=== PATIENT | female | born 1945 | race Caucasian/White ===

== ENCOUNTER 2018-11-25 12:53 | Inpatient (IN) | payer OTHER ==
--- NOTE | 2018-11-25 12:43 | EDPHY ---
H & P Time Seen by Provider: 11/25/18 12:57 Constitutional: Initial Vital Signs Temperature (C) 35.6 C L 11/25/18 13:02 Heart Rate 76 11/25/18 13:02 Respiratory Rate 22 H 11/25/18 13:02 Blood Pressure 92/56 L 11/25/18 13:02 O2 Sat (%) 95 11/25/18 13:02 O2 Delivery Mode Nasal Cannula O2 (L/minute) 3 Allergies/Adverse Reactions: codeine Allergy (Verified 11/25/18 13:13) Home Medications: Medication Instructions Recorded Lisinopril 11/25/18 Medical Decision Making - Diagnostics Imaging Results: Imaging Impressions Chest X-Ray 11/25/18 12:58 Impression: 1. Suspect congestive heart failure. 2. See above report for additional findings. Results discussed with Gray Quezada MD on 11/25/2018 at 13:42. Imaging: Discussed imaging studies w/ yardage caller Radiologist, I viewed and interpreted images myself ED Course/Re-evaluation: CHIEF COMPLAINT: Cardiac alert HISTORY OF PRESENT ILLNESS: The patient is a 74 y/o female arriving via EMS as a cardiac alert for chest pain onset 45 minutes ago at 12:15. The patient described her pain as left- sided and non-radiating in nature. The pain was a 12/10 and exacerbated with respirations and movements. While en route the patient had ST elevation in leads V4, V5, and V6. The patient received 324mg PO Aspirin, 3 rounds of Nitro, 4mg IV Zofran, 100mcg IV Fentanyl, and 10mg IV Morphine. After medication her pain decreased to an 8/10 and her BP dropped to 107/73 with a heart rate of 50. After arriving to the emergency department she was exhibiting Olson's sign. No fever, headache, body aches, lightheadedness, heart palpitations, shortness of breath, cough, abdominal pain, urinary or bowel complaints, numbness, paresthesias. REVIEW OF SYSTEMS: A comprehensive 10 system review of systems is otherwise negative aside from elements mentioned in the history of present illness and medical decision making. PHYSICAL EXAM: HR, BP, O2 Sat, RR. Temp noted General Appearance: Alert, diaphoretic, looks to be in distress, well hydrated , appropriate, and non-toxic appearing. Head: Atraumatic without scalp tenderness or obvious injury Eyes: Pupils equal, round, reactive to light and accommodation, EOMI, no trauma , no injection. Ears: Clear bilaterally, no perforation, normal landmarks Nose: Atraumatic, no rhinorrhea, clear. Throat: There is no erythema or exudates, no lesions, normal tonsils, mucus membranes moist. Neck: Supple, 2+ carotid upstroke, nontender, no lymphadenopathy. Respiratory: No retractions, no distress, no wheezes, and no accessory muscle use. Lungs are clear to auscultation bilaterally. Cardiovascular: Olson's sign, is diaphoretic, and has a 2/6 systolic ejection murmur. No rubs or gallops. Bilateral carotid, radial, dorsalis pedis, and posterior tibial pulses intact. Good capillary refill all extremities. Gastrointestinal: Abdomen is soft, nontender, non-distended, no masses, no rebound, no guarding, no peritoneal signs. Musculoskeletal: Normal active ROM of all extremities, atraumatic. Neurological: Alert, appropriate, and interactive. The patient has normal DTRs and non-focal cranial nerves, motor, sensory, and cerebellar exam. Skin: No rashes, good turgor, no nodules on palpation. Past medical history: Hypertension, chronic back pain Past surgical history: Tens unit for chronic back pain Family history: Denies Social history: Friend at bedside, does not abuse drugs or alcohol, retired DIAGNOSTICS/PROCEDURES/CRITICAL CARE TIME: EKG: The 12 lead EKG was interpreted by myself as an acute right-sided inferior ND with reciprocal depression. See hard copy and/or "tracemaster" electronic copy for interpretation. Study: Chest X-ray Indication: Chest pain Results: After viewing the images myself on the PACS system. My interpretation of the images is: hiatal hernia and spinal stimulator. The radiologist interpretation is pending at the time of this dictation. I have discussed the above x-rays with the radiologist. Critical care time spent by me, Dr. Aguirre, exclusively with this patient was 30 minutes, exclusive of PA time and exclusive of procedures. The organ system at risk was cardiovascular and I gave Ativan, had labs and imaging performed, and emergently transferred the patient to a paraffiner to prevent worsening of the patients condition. DIFFERENTIAL DIAGNOSIS: The differential diagnosis for the patient's chest pain included but was not limited to STEMI, myocardial ischemia, pulmonary embolus, chest wall pain, pleural inflammation, and pulmonary infectious causes. MEDICAL DECISION MAKING: The patient is a 74 y/o female arriving via EMS as a cardiac alert for chest pain onset 45 minutes ago at 12:15. The patient described her pain as left- sided and non-radiating in nature. While en route the patient had ST elevation in leads V4, V5, and V6. The patient received 324mg PO Aspirin, 3 rounds of Nitro, 4mg IV Zofran, 100mcg IV Fentanyl, and 10mg IV Morphine. After medication her pain decreased to an 8/10 and her BP dropped to 107/73 with a heart rate of 50. On exam the patient is exhibiting Olson's sign, is diaphoretic, and has a 2/6 systolic ejection murmur. Chest x-ray, labs, and EKG ordered. 1242: Dr. Mooney, paraffiner, is in the room prior to patient arrival. 1254: I met EMS upon arrival. 1258: 1mg IV Ativan administered. 1259: I interpreted patient's EKG as an acute right-sided inferior ND. Patient will need to be sent to the slab conditioner supervisor. 1300: I discussed going to the slab conditioner supervisor with the patient after reviewing her EKG. She is comfortable with this plan. 1302: HR: 56, BP: 92/56, O2Sats: 98% 1303: I reviewed patient's chest x-ray with Dr. Mooney at bedside. I do not suspect she has a dissecting aorta. There is a spinal stimulator and hiatal hernia visualized. 1305: Dr. Plasencia, paraffiner, is in the room. 1340: I spoke with Dr. Ventura, radiologist, who confirms that the patient has a hiatal hernia and spinal stimulator. There is no dissection. 1345: Patient is in slab conditioner supervisor; Dr. Mooney reports that the patient has an occluded circumflex artery. 1600: I consulted with Dr. Plasencia who reports that the patient had a spontaneous coronary artery dissection. - Data Points Laboratory Results: 11/25/18 11/25/18 13:12 13:09 POC Hgb 13.9 gm/dL gm/dL (12.6-16.3) POC Hct 41 % % (38-47) POC Sodium 140 mEq/L mEq/L (135-145) POC Potassium 4.5 mEq/L mEq/L (3.3-5.0) POC Chloride 109 mEq/L mEq/L (97-110) POC Total CO2 18 mEq/L L mEq/L (22-31) POC BUN 34 mg/dL H mg/dL (7-23) POC Creatinine 1.2 mg/dL H mg/dL (0.6-1.0) POC Glucose 116 mg/dL H mg/dL (70-100) POC Troponin I 0.76 ng/mL H ng/mL (0.00-0.08) Medications Given: Sodium Chloride (Ns) 1,000 mls @ 75 mls/hr IV CONT SANDY Stop: 05/24/19 15:29 Last Admin: 11/25/18 15:29 Dose: 1,000 mls Lorazepam (Ativan Injection) 1 - 2 mg IVP Q4HRS PRN PRN Reason: Anxiety, Unable to Take PO Stop: 05/24/19 15:17 Last Admin: 11/25/18 16:02 Dose: 2 mg Ondansetron HCl (Zofran) 4 mg IVP Q4HRS PRN PRN Reason: Nausea/Vomiting, Can't Take PO Stop: 05/24/19 15:14 Last Admin: 11/25/18 15:36 Dose: 4 mg Discontinued Medications Lorazepam (Ativan Injection) 1 mg IVP EDNOW ONE Stop: 11/25/18 13:01 Last Admin: 11/25/18 13:05 Dose: 1 mg Morphine Sulfate (Morphine) 4 mg IVP ONCE ONE Stop: 11/25/18 15:31 Last Admin: 11/25/18 15:05 Dose: 4 mg Morphine Sulfate (Morphine) 2 - 4 mg IVP Q2H PRN PRN Reason: Pain, Severe Unable to Take PO Stop: 12/05/18 15:13 Last Admin: 11/25/18 15:51 Dose: 4 mg Point of Care Test Results: Chemistry 11/25/18 11/25/18 13:12 13:09 POC Sodium 140 mEq/L mEq/L (135-145) POC Potassium 4.5 mEq/L mEq/L (3.3-5.0) POC Chloride 109 mEq/L mEq/L (97-110) POC Total CO2 18 mEq/L L mEq/L (22-31) POC BUN 34 mg/dL H mg/dL (7-23) POC Creatinine 1.2 mg/dL H mg/dL (0.6-1.0) POC Glucose 116 mg/dL H mg/dL (70-100) POC Troponin I 0.76 ng/mL H ng/mL (0.00-0.08) ISTAT H&H 11/25/18 13:12 POC Hgb 13.9 gm/dL gm/dL (12.6-16.3) POC Hct 41 % % (38-47) Departure - Departure Disposition: To OP Cath/Surgery Clinical Impression: STEMI (ST elevation myocardial infarction) Qualifiers: Involved coronary artery: left circumflex coronary artery Qualified Code(s): I21.21 - ST elevation (STEMI) myocardial infarction involving left circumflex coronary artery Condition: Critical Report Scribed for: Gray Quezada Report Scribed by: Sahra Chahal Date of Report: 11/25/18 Time of Report: 12:43
[2018-11-25] MEDS ORDERED: LORazepam 2 MG/ML INJ IVP ONE (13:00)
[2018-11-25] MEDS ORDERED: LORazepam 2 MG/ML INJ ONE (13:00)
[2018-11-25] MEDS ORDERED: LIDOCAINE 1% 300 MG/30 ML SDV ONE (13:03)
[2018-11-25] MEDS ORDERED: MIDAZOLAM 2 MG/2 ML VIAL ONE (13:04)
[2018-11-25] MEDS ORDERED: HEPARIN 10,000 UNIT/10 ML MDV (1,000 UNIT/ML) ONE (13:04)
[2018-11-25] MEDS ORDERED: fentaNYL 100 MCG/2 ML INJ ONE (13:04)
[2018-11-25] MEDS ORDERED: VERAPAMIL 5 MG/2 ML VIAL ONE (13:04)
[2018-11-25] MEDS ORDERED: IOPAMIDOL (ISOVUE-370) 150 ML BTL IV ONE ×2 (13:05→13:55)
--- NOTE | 2018-11-25 13:24 | PDCONSULT ---
Boat Detailer Note: CC: Chest pains HPI: Patient is a 72 y/o female with history of HTN (on therapy), as well as bilateral shoulder surgeries, and TENS unit for assistance with pain control with shoulder pains that had been noted post multiple shoulder surgeries. In speaking with the patient, there is also a history of "murmur" for which she has been seen/followed by cardiology at [place] (uncertain when last testing was performed with respect to this stated history). No history of HLP, CAD, or DM. Patient did not have a list of her home medications on her (it is on phone, and phone was not on her). ECG from EMS with large ST elevation to the inferior /inferolateral leads. No IV access was obtained given difficult stick in field. Patient noted symptoms this morning while working at [employer]. EMS was prompt at getting to patient. About 45 minutes of travel time from [place] to [place]. Arrival at just prior to 1300 to [facility] ER. ECG in the ER with ongoing, large ST elevations to inferior/inferolateral leads. Labs were drawn with creatinine of 1.2 and troponin of 0.76. Chest pains were 12/10 at start, and with three SL NTG, minimal improvement in pain was noted. CXR without rossana mediastinal widening noted. There appears to be a large hiatal hernia. Moderate right congestion noted. Risks and benefits of invasive left heart catheterization were discussed with the patient by Dr. Silvia Plasencia. ROS: chest pains with radiation into the left shoulder and arm. Diaphoresis. Nausea with emesis. Malaise and weakness. No fevers, chills, constipation, or diarrhea were noted. Remainder of the 12 point review of systems was unremarkable. Bystanders noted diaphoresis and pallor. PMHx: (1) HTN (2) No HLP (3) No CAD (4) No DM (5) Multiple shoulder surgeries and chronic pain with TENS unit placement Allergies to Codeine Medications are being clarified, but it sounded as if the patient was on ACEi for HTN history PE Vitals as below GEN: awake and alert, uncomfortable with ongoing substernal chest pains SKIN: no rash. Diaphoretic. Pale. No edema HEENT: NCAT with PERRLA, EOMI NECK: no JVD noted LUNGS: CTA with diminished breath sounds bilaterally. No crackles were noted COR: Distant, but regular. Normal S1 and S2 (+) S3 ABD: soft, mod obesity EXT: No c/c/e, with 2+ DP/PT/RAD pulses Neuro: patient is uncomfortable and unable to find comfortable position Labs: Laboratory Tests 11/25/18 11/25/18 13:09 13:12 POC Hgb 13.9 POC Hct 41 POC Sodium 140 POC Potassium 4.5 POC Chloride 109 POC Total CO2 18 L POC BUN 34 H POC Creatinine 1.2 H POC Glucose 116 H POC Troponin I 0.76 H ECG with dynamic ST elevation to the inferior and inferolateral leads CXR with congestion and probable large hiatal hernia Assessment: Patient is a 72 y/o female with history of HTN, and dynamic ST changes on ECG with associated chest pains. Mild troponin elevation noted (0.7). Plan to take patient to the cardiac woods laborer urgently. Plans: further recommendations after invasive testing has been completed.
[2018-11-25] MEDS ORDERED: BIVALIRUDIN 250 MG/5 ML VIAL IV ONE (13:36)
[2018-11-25] MEDS ORDERED: NITROGLYCERIN 1,500 MCG/15 ML VIAL MISC ONE (14:17)
--- NOTE | 2018-11-25 14:40 | CPEKG ---
Test Reason : OPEN Blood Pressure : / mmHG Vent. Rate : 056 BPM Atrial Rate : 056 BPM P-R Int : 201 ms QRS Dur : 098 ms QT Int : 469 ms P-R-T Axes : 090 -13 090 degrees QTc Int : 453 ms Sinus rhythm Inferior infarct, acute (LCx) Anterior infarct, possibly acute Lateral leads are also involved Confirmed by Gray Quezada ([id number]) on 11/25/2018 2:39:49 PM Referred By: Gray Quezada Confirmed By:Gray Quezada
[2018-11-25] MEDS ORDERED: NS 1,000 ML IV SCH (15:15)
[2018-11-25] MEDS ORDERED: NITROGLYCERIN 0.4 MG BTL SL PRN (15:15)
[2018-11-25] MEDS ORDERED: ATROPINE SULFATE 1 MG/10 ML SYR IVP PRN (15:15)
[2018-11-25] MEDS ORDERED: TEMAZEPAM 15 MG CAP PO PRN (15:15)
[2018-11-25] MEDS ORDERED: ACETAMINOPHEN 325 MG TAB PO PRN (15:15)
[2018-11-25] MEDS ORDERED: LORazepam 2 MG/ML INJ IVP PRN (15:15)
[2018-11-25] MEDS: NS 1,000 ML IV SCH ×2 (15:29→17:54)
--- NOTE | 2018-11-25 15:35 | PDDXCAT ---
Diagnostic Cath Note - . Date: 11/25/18 Operations Research Scientist: Luis Angel Indication: other (Inferior STEMI) - Procedure Access: right groin Procedure: left heart catheterization, coronary angiography, left ventriculogram , other (Attempted PCI of the distal RCA) - Materials Left Heart Cath size: 6F Left Heart Cath materials: standard multipack (JL4, JR4, pigtail) - Findings-Left Heart Catheterization LM: Normal. LAD: The LAD is a moderate to large vessel. The LAD and its diagonal branches are normal in appearance. LCX: The circumflex is a large codominant vessel. It gives rise to 3 obtuse marginal branches before terminating as a low posterolateral branch on the inferior wall. The terminal portion of the circumflex is totally occluded. RCA: The RCA is a moderate size codominant vessel. It is normal in appearance. LVEF: 55-60%. Wall motion: There is a focal area of inferior akinesis. Complications: None. Estimated blood loss: <50ml Closure method: Angioseal Assessment: 1.Acute inferior ST segment elevation myocardial infarction. 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 3. Unsuccessful attempt at PCI of the distal circumflex. Intervention: Based on the patient's clinical presentation and diagnostic angiography, the decision was made to perform percutaneous coronary intervention of the distal circumflex occlusion. The patient received intravenous Angiomax. A 6 Slovak CLS 3.5 guide catheter was advanced to the left main. An Intuition guidewire was advanced to the point of occlusion in the distal circumflex. It was difficult to advance it beyond this point. A 2.5 x 12 mm Emerge balloon was advanced over the guidewire to provide support. Ultimately, the guidewire was advanced 2-3 cm beyond the site of total occlusion. The balloon was advanced beyond the site of occlusion and then withdrawn. An angiogram was performed to see whether or not this re-established any flow. There was no significant flow beyond the side of the original occlusion. I had concern that the guidewire and balloon were within a dissection plane. The balloon catheter and guidewire were removed. A long Rug Hooker 50 guidewire was advanced to the distal circumflex and negotiated into approximately the same position as the previous guidewire. A 2.0 x 12 mm Sprinter [id number] balloon was advanced beyond the total occlusion. The guidewire was withdrawn and contrast was injected through the central balloon catheter lumen. The tip of the balloon appeared to be within a small terminal vessel of the circumflex. The guidewire was readvanced through the balloon catheter. The balloon was positioned at the site of total occlusion and a single inflation was performed. Subsequent angiography demonstrated no gnosticism of anterograde flow. At this point, I still had concerns that the guidewire and balloon catheter were subintimal for some portion of their course and that further attempts at PCI would serve to increase the risk for a complication such as coronary perforation. Additionally , it appeared that the salvageable portion of the distal circumflex a relatively small branch and that re-establishing anterograde flow would not necessarily confer a substantial improvement in her long-term prognosis. The procedure was terminated at this point. Patient Problems: Problems Problem Status Onset STEMI (ST elevation myocardial infarction) Acute
[2018-11-25] MEDS: ONDANSETRON 4 MG/2 ML VIAL IVP PRN (15:36)
[2018-11-25] MEDS: LORazepam 2 MG/ML INJ IVP PRN (16:02)
[2018-11-25] MEDS ORDERED: NS 500 ML IV ONE ×2 (17:00→17:30)
[2018-11-25] MEDS ORDERED: ALBUMIN 5% 500 ML IV ONE ×2 (17:53→18:30)
[2018-11-25] MEDS ORDERED: ALBUMIN 5% 500 ML BOTTLE IV ONE (17:58)
[2018-11-25 22:43] LABS: CREATINE KINASE 434 IU/L (0-156)
[2018-11-26] MEDS: FAMOTIDINE 20 MG TAB PO SCH ×3 (00:19→22:32)
[2018-11-26] MEDS: METOPROLOL TARTRATE 25 MG TAB PO SCH ×3 (00:20→22:32)
[2018-11-26] MEDS: HYDROmorphONE/DILAUDID 1 MG/ML INJ IVP PRN ×5 (00:34→14:31)
--- NOTE | 2018-11-26 05:02 | GCON ---
[f rep st] CONSULTATION CRITICAL CARE CONSULTATION REASON FOR CONSULTATION: Intensive care unit evaluation and management following myocardial infarction. HISTORY OF PRESENT ILLNESS: The patient is a 73-year-old from [place], who noted chest pain while at work this morning. EMS was called. She was brought to the emergency department with ST-elevation in the inferior lateral leads. She was taken emergently to the clinical laboratory science professor. Distal circumflex lesion was noted. This was felt possibly to be a spontaneous dissection of a coronary artery. There was no evidence of coronary artery disease elsewhere. Balloon angioplasty was not successful. The patient was admitted to the intensive care unit following the procedure to complete her distal and small myocardial infarction. A small area of akinesis is noted on catheterization; however, global left ventricular function is intact. She has returned to the intensive care unit with ongoing chest pain with radiation to her left arm. PAST MEDICAL HISTORY: Remarkable for systemic hypertension, chronic pain secondary to multiple shoulder surgeries. She has a TENS unit in place. MEDICATIONS: Outpatient medications include lisinopril. A full list perhaps is not yet available. DRUG ALLERGIES: Codeine. She states that she does not respond well to morphine , prefers Dilaudid. SOCIAL HISTORY: Lives and works in [place]. Supportive family here with her. She smoked cigarettes in the past, apparently no longer smoking. Significant alcohol is apparently negative. FAMILY HISTORY: Unobtainable. REVIEW OF SYSTEMS: A 10-point review of systems is negative, except as mentioned above and as reviewed in chart notes by others. PHYSICAL EXAMINATION: GENERAL: Reveals a woman who is sedated at the current time, secondary to pain medication. VITALS: With the sedation, blood pressure has dropped to approximately 75/45. She is on 2 L of oxygen with saturations in the mid 90s. Respiratory rate is 12. She is afebrile. Heart rate is 72 with sinus rhythm on the monitor. ST segments are elevated. HEENT: Unremarkable for lymphadenopathy or thyromegaly. There is no obvious jugular venous distention. Pupils appear equal. CHEST: Clear anteriorly. Breath sounds are diminished at the bases. HEART: Regular in rate and rhythm. There is a soft systolic murmur, no gallop. P2 appears normal. ABDOMEN: Soft, nontender. Bowel sounds are present, but diminished. EXTREMITIES: Without edema or obvious cords. NEUROLOGIC: Nonfocal. LABORATORY DATA: Hematocrit is 41. Basic metabolic panel on admission showed a sodium of 140, potassium 4.5, BUN 34, with a creatinine 1.2. Glucose is 116. Initial troponin 0.76. ASSESSMENT: 1. Acute myocardial infarction. No stenting possible. Sent to ICU to complete her infarct. 2. Chest pain, secondary to 1. Myocardial left-sided chest pain to the shoulder /axilla area is present, quite significant for the patient. This will be present in till myocardial inflammation resolves. PLAN/RECOMMENDATIONS: The patient will be kept in the intensive care unit. Hemodynamics and rhythm will be monitored closely. Aspirin and metoprolol will be given. Pain will be controlled with intravenous Dilaudid. Pepcid will be given. She can be started on enoxaparin tomorrow. Intravenous fluids will be given. Laboratory and chest x-ray will be followed. Further plans and recommendations will be made based on her progress over the next 12-24 hours. /[id number]/MODL and [id number]/MODL [facility]
[2018-11-26 05:40] LABS: PLATELET COUNT 250 10^3/uL (150-400)
[2018-11-26 05:54] LABS: INR 1.03 (0.83-1.16); PROTIME(PATIENT) 13.1 SEC (12.0-15.0)
[2018-11-26] MEDS: ASPIRIN 325 MG TAB PO SCH (10:24)
--- NOTE | 2018-11-26 10:58 | ECHO ---
[email or web address] [address] [address] Main: [phone] Echocardiography Examination Transthoracic Name: CLARIBEL NEGRON MR#: [id number] Study Date: 11/26/2018 Study Time: 09:09 AM Date of : 1945 Age: 73 year(s) Height: 162.6 cm (64 in.) Weight: 77.57 kg (171 lb.) BSA: 1.83 m2 Gender: Female Examination: Echo Contrast: Image Quality: Technically Difficult Rhythm: Sinus bradycardia Heart Rate: 46 bpm BP: 117 mmHg/57 mmHg Indication: STEMI Procedure Staff Referring Physician: Storage Wharfage Clerk: Erin Graves [facility] Reading Physician: Lucas Pierce MD Requesting Provider: Indication: STEMI Measurements Chambers AV/MV Label Value Normal Value Label Value Normal Value EF lower range (%) 60 % AR PHT 0.57 s EF upper range (%) 65 % AR PHT 571 ms IVSd, 2D 0.9 cm (0.6cm - 1.1cm) AR Vena contracta 0.5 cm LVDd, 2D 4.3 cm (3.9cm - 5.3cm) AR Vmax 3.92 m/s LVDs, 2D 2.8 cm (2.1cm - 4cm) AV PGmax 23 mmHg LVEF, 2D 64 % (54% - 74%) AV PGmean 14 mmHg LVEF, BP 63 % (55% - 70%) AV Vmax 2.42 m/s LVOT PGmean 3 mmHg JOSEPHINE D (continuity eq. 1 cm2 LVOT Vmean 0.75 m/s VTI) LVOTd 1.8 cm (1.8cm - 2cm) MV A Vmax 0.68 m/s LVPWd, 2D 1.1 cm MV DT 162 ms RVDd, 2D 3.1 cm (1.9cm - 3.8cm) MV E' lateral 0.06 m/s LA Volume, BP 83 ml (22ml - 52ml) MV E' mean 0.06 m/s LAESV index, BP 45.4 ml/m2 MV E' septal 0.06 m/s RA Area 13.7 cm2 MV E Vmax 0.95 m/s Additional Vessels MV E/A 1.4 Label Value Normal Value MV E/E' lateral 15.4 AoAsc 3 cm MV E/E' mean 15.83 AoRoot, 2D 2.8 cm (1.4cm - 2.6cm) MV E/E' septal 15.4 (0.45 - 1.25) TV/PV Patient: CLARIBEL NEGRON Study Date: 11/26/2018 Page 1 of 3 09:09 AM Label Value Normal Value RA Pressure 5 mmHg RVSP 35 mmHg TR Pmax 30 mmHg TR Vmax 2.73 m/s KS End bauer Jordon 0.41 cm/s PV PGmax 3 mmHg PV Vmax, Caliper 0.86 m/s (0.6m/s - 0.9m/s) Conclusions Left Ventricle: Left ventricle is normal in size. EF range is estimated at 60 % - 65 %. There are no regional wall motion abnormalities. Right Ventricle: Right ventricular systolic function is normal. Left Atrium: The left atrium is moderately dilated. Right Atrium: The right atrium is normal in size. Aortic Valve: Mild to moderate aortic regurgitation is present. There is mild aortic stenosis. Aortic Valve Measurements AV Vmax is 2.42 m/s. AV PGmean is 14 mmHg. Tricuspid Valve: Right Ventricular systolic pressure is measured at 35 mmHg. IVC: The inferior vena cava is normal in size and course. Pericardium: No pericardial effusion. Findings Left Ventricle: Left ventricle is normal in size. Normal global systolic left ventricular function. EF evaluated by EF (biplane Jordan's). The ejection fraction, measured by Simpsons method, is 63 %. EF range is estimated at 60 % - 65 %. The LV wall thickness is at the upper limits of normal. There are no regional wall motion abnormalities. Grade II Diastolic Dysfunction. Right Ventricle: Normal size right ventricle. Right ventricular systolic function is normal. Left Atrium: The left atrium is moderately dilated. Right Atrium: Patient: CLARIBEL NEGRON Study Date: 11/26/2018 Page 2 of 3 09:09 AM The right atrium is normal in size. Mitral Valve: Mitral valve appears structurally normal. Mild mitral regurgitation. No mitral valve stenosis. Aortic Valve: Mild to moderate aortic regurgitation is present. There is mild aortic stenosis. Aortic leaflets exhibit moderate calcification. The aortic valve is trileaflet. Aortic Valve Measurements AV Vmax is 2.42 m/s. AV PGmean is 14 mmHg. JOSEPHINE D (continuity eq. VTI) is 1.0 cm2. Tricuspid Valve: Tricuspid valve leaflets are normal in appearance and function. Mild tricuspid regurgitation. No tricuspid valve stenosis. Right Ventricular systolic pressure is measured at 35 mmHg. Pulmonary artery pressure is mildly increased. Pulmonic Valve: Pulmonic leaflets are normal in appearance and function. Trivial pulmonic valve regurgitation is present. Aorta: The aortic root size in 2D measures 2.8 cm. The aortic root exhibits normal size. The ascending aorta measures 3.0 cm. Ascending aorta is normal in size. Aorta Measurements AoRoot, 2D is 2.8 cm. IVC: The inferior vena cava is normal in size and course. Pericardium: No pericardial effusion. Exam Details Procedure Ordered: Echo Procedure Status: Routine study Image Quality: Technically Difficult Facility Location: Cardiac Echo 1 (No Signature Object) Patient: CLARIBEL NEGRON Study Date: 11/26/2018 Page 3 of 3 09:09 AM [id number]
--- NOTE | 2018-11-26 10:59 | PDMN ---
Medical Necessity Medical necessity: MCG M230 AL 2 days: 72yoF presents with CP with radiation to L shoulder and arm. diaphoresis, N/V. malaise and weakness. EKG shows large ST elevation to the inferior/inferolateral leads. OP: urgent cardiac cath: LHC, angio, LVR, attempted PCI of distal RCA- anticipate > 2 MN ongoing med nec care.
[2018-11-26] MEDS: ENOXAPARIN 40 MG/0.4 ML SYR SC SCH (11:05)
[2018-11-26] MEDS ORDERED: NITROGLYCERIN 0.4 MG BTL SL ONE (11:30)
[2018-11-26] MEDS ORDERED: NS 500 ML IV ONE (11:30)
--- NOTE | 2018-11-26 11:48 | CPEKG ---
Test Reason : OPEN Blood Pressure : / mmHG Vent. Rate : 046 BPM Atrial Rate : 046 BPM P-R Int : 208 ms QRS Dur : 104 ms QT Int : 489 ms P-R-T Axes : 088 012 072 degrees QTc Int : 428 ms Sinus bradycardia Ventricular premature complex Inferior infarct, acute (LCx) Lateral leads are also involved ST elevation noted to the inferior/inferolateral leads is less prominent in this ECG Confirmed by Raza Mooney ([id number]) on 11/26/2018 11:48:35 AM Referred By: Juan Plasencia Confirmed By:Raza Mooney
[2018-11-26] MEDS: NS 1,000 ML IV SCH (12:42)
[2018-11-26 13:37] LABS: CREATINE KINASE 1253 IU/L (0-156)
--- NOTE | 2018-11-26 14:24 | PDCARPN ---
Cardiology Progress Note Assessment/Plan: Bridgette is a 73-year-old female who was admitted yesterday with an acute inferior STEMI. Her cardiac catheterization revealed total occlusion of the terminal portion of a codominant circumflex. The remainder of her entire coronary tree was free of any atherosclerosis. PCI of the occlusion side was attempted but was unsuccessful. 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 She still has ongoing chest discomfort. However, she has been hemodynamically stable and has not demonstrated any significant arrhythmias or evidence of CHF. Her left ventriculogram demonstrated an overall ejection fraction approaching 60% with a focal area of inferior hypokinesis. Echocardiography this morning demonstrates an ejection fraction of 60-65%. There was no obvious wall motion abnormality by echo. She has age-related valvular changes with [id number] aortic regurgitation, mild aortic stenosis, mild mitral regurgitation, and mild tricuspid regurgitation. - Will plan for dual anti-platelet therapy for 12 months. - Lifelong beta-trudy therapy. 11/26/18 14:19 Subjective: Reports ongoing chest pain. Reviewed/Discussed With: family Objective: Vital Signs (8 Hrs) Temp Pulse Resp BP Pulse Ox 11/26/18 11:55 43 L 15 105/54 L 97 11/26/18 10:49 47 L 11/26/18 10:00 45 L 16 89/46 L 94 11/26/18 08:00 36.4 C 42 L 16 117/57 L 94 Intake/Output (24 Hrs) 11/25/18 11/26/18 11/27/18 05:59 05:59 05:59 Intake Total 2520 Output Total 960 660 Balance 1560 -660 Intake: IV Infused (ml) 2520 Albumin 5% 500 ml @ As 500 Directed IV ONCE ONE Rx#: [id number] Ns 1,000 ml @ 75 mls/hr 1020 IV CONT SANDY Rx#: [id number] Ns 500 ml @ As Directed 500 IV ONCE ONE Rx#: [id number] Ns 500 ml @ As Directed 500 IV ONCE ONE Rx#: [id number] Output: Urine (ml) 960 660 Bedpan 150 Bedside Commode 360 660 Catheter 450 Other: Weight 77 kg Output Comment Catheter straight cath Number of Voids Bedside Commode 4 2 Post Void Residual Scan Volume (ml) Bedside Commode 80 Result Diagrams: 11/26/18 05:25 Cardiac Labs: Cardiac Lab Results (72 Hrs) 11/26/18 11/26/18 11/25/18 13:10 05:25 21:45 CK-MB (CK-2) Fraction 191.00 H 63.60 H Troponin I 37.200 H 24.200 H 7.150 H 11/25/18 21:25 CK-MB (CK-2) Fraction REJ Troponin I REJ - Physical Exam Constitutional: no apparent distress Eyes: anicteric sclera Ears, Nose, Mouth, Throat: moist mucous membranes Cardiovascular: regular rate and rhythm, no murmurs, no gallops Respiratory: clear to auscultate bilat Gastrointestinal: normoactive bowel sounds, no tenderness, no masses Skin: no rashes, no edema Neurologic: AAOx3 Psychiatric: not anxious ICD10 Worksheet Patient Problems: Problems Problem Status Onset STEMI (ST elevation myocardial infarction) Acute
[2018-11-26] MEDS ORDERED: IBUPROFEN 600 MG TAB PO ONE (15:15)
--- NOTE | 2018-11-26 15:52 | PDINTPN ---
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 This was associated probably to a distal circumflex arterial dissection. Could not be stented or ballooned. Returned to the ICU to complete the her infarct. Troponin appears to be peaking today. Doing relatively well overall. Pain is the primary issue. No arrhythmias. Ejection fraction overall was normal on catheterization, and on echo today estimated left ventricular ejection fraction is approximately 60%. Chest pain, secondary to 1. On Dilaudid. I wonder are about a component of pericardial pain as well? Will try a dose of ibuprofen 600 mg. Chronic right shoulder pain, has a Tens unit. Prophylaxis: On enoxaparin and famotidine. History ADD: On Ritalin. Currently on hold secondary to potential cardio stimulation. History of hypertension. Blood pressure is borderline low on current medications. Her home lisinopril is on hold. Plan: Continue care in the intensive care unit. Continue hemodynamic monitoring. Continue pain control. Try ibuprofen for possible pericardial pain x1 dose: continue if this helps. Continue IV fluids. Follow laboratory. 25 min of critical care time spent directly with the patient. Discussed with the patient and her family, nursing, the ICU multi disciplinary team. Subjective: Doing okay. Still has significant left-sided chest pain radiating up toward the left axilla. Better with Dilaudid but still present. There may be a pleuritic component to this as it gets worse with inspiration Objective: Vital Signs Temp Pulse Resp BP Pulse Ox 36.4 C 47 L 19 102/50 L 93 11/26/18 08:00 11/26/18 14:00 11/26/18 14:00 11/26/18 14:00 11/26/18 14:00 Laboratory Results 11/26/18 05:25 11/25/18 11/26/18 11/27/18 05:59 05:59 05:59 Intake Total 2520 Output Total 960 660 Balance 1560 -660 PT 13.1 SEC (12.0-15.0) 11/26/18 05:25 INR 1.03 (0.83-1.16) 11/26/18 05:25 Laboratory Tests 11/26/18 13:10 Creatine Kinase 1253 H CK-MB (CK-2) Fraction 191.00 H Creatine Kinase Interp POSITIVE H Troponin I 37.200 H Physical Exam - Physical Exam General Appearance: no apparent distress, other (In bed, sleeping, easily arousable) EENT: PERRL/EOMI, other (Nasal cannula in place at 2 L) Neck: normal inspection (No JVD) Respiratory: lungs clear, decreased breath sounds (At bases) Cardiac/Chest: regular rate, rhythm, other (Distant heart tones, hard to hear), No gallop, No friction rub Abdomen: normal bowel sounds, non-tender, soft Pelvic Exam: other (No [place], using urinal) Skin: normal color, warm/dry Extremities: No pedal edema Neuro/Psych: no motor/sensory deficits, No cognition abnormalities ICD10 Worksheet Patient Problems: Problems Problem Status Onset STEMI (ST elevation myocardial infarction) Acute
--- NOTE | 2018-11-26 16:39 | ASMTCASEMG ---
Living Arrangements What is your living Answers: With Child(layne) arrangement? Who do you live with? Type Of Residence What kind of residence do Answers: House you live in? 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 Patient had an SC but could not be stented or ballooned. Cardiac rehab has been ordered. Likely patient will d/c independently to outpatient cardiac rehab. D/C plan TBD. CM will follow. Date Signed: 11/26/2018 04:38 PM Electronically Signed By:Reina Oakes LCSW
[2018-11-27] MEDS: HYDROmorphONE/DILAUDID 1 MG/ML INJ IVP PRN ×4 (01:44→20:17)
[2018-11-27] MEDS: ONDANSETRON 4 MG/2 ML VIAL IVP PRN ×2 (04:28→17:26)
[2018-11-27 05:54] LABS: CREATINE KINASE 996 IU/L (0-156)
[2018-11-27] MEDS: ACETAMINOPHEN 325 MG TAB PO PRN ×2 (05:56→11:21)
[2018-11-27] MEDS: ASPIRIN 325 MG TAB PO SCH (09:05)
[2018-11-27] MEDS: FLUoxetine 20 MG CAP PO SCH (09:05)
[2018-11-27] MEDS: FAMOTIDINE 20 MG TAB PO SCH ×2 (09:05→20:18)
[2018-11-27] MEDS: ENOXAPARIN 40 MG/0.4 ML SYR SC SCH (09:05)
[2018-11-27] MEDS: METOPROLOL TARTRATE 25 MG TAB PO SCH ×2 (09:05→20:18)
[2018-11-27] MEDS: HYDROmorphONE/DILAUDID 2 MG TAB PO PRN ×2 (09:27→13:29)
[2018-11-27] MEDS ORDERED: CLOPIDOGREL BISULFATE 75 MG TAB PO ONE (09:27)
[2018-11-27] MEDS ORDERED: ALTEPLASE 2 MG VIAL IVP PRN (09:38)
--- NOTE | 2018-11-27 11:24 | PDCARPN ---
Cardiology Progress Note Assessment/Plan: Bridgette is a 73 y/o female who was admitted 11/25 with an acute inferior STEMI. ST Segment Elevation Myocardial Infarction: Cardiac cath demonstrated abrupt occlusion of the terminal portion of the circumflex. The remainder of her coronary circulation was free of any demonstrable atherosclerosis. Suspect the etiology of her NM was SCAD. Uncertain as to the etiology of this morning's left shoulder discomfort. It appeared to resolve prior to the expected time for peak effectiveness of oral pain medication. Stable without arrhythmias or left ventricular dysfunction. - Transfer to PCU. - Ambulate in the halls. - Repeat ECg in a.m. - Dual anti-platelet therapy for 12 months. - Lifelong beta-trudy therapy. Disposition: Depending on clinical course overnight, may be able to be discharged in the a.m. 11/27/18 11:14 Subjective: Reported severe left upper chest/shoulder pain at the time I saw her about 90 min ago. Rseolved either spontaneously or with 2 mg Dilaudid. Objective: Vital Signs (8 Hrs) Temp Pulse Resp BP Pulse Ox 11/27/18 10:00 51 L 20 105/62 96 11/27/18 09:05 52 L 11/27/18 08:00 54 L 17 109/53 L 96 11/27/18 06:00 37.1 C 53 L 20 95/53 L 95 11/27/18 04:00 55 L 24 H 117/77 95 Intake/Output (24 Hrs) 11/26/18 11/27/18 11/28/18 05:59 05:59 05:59 Intake Total 2520 2596 Output Total 960 1310 150 Balance 1560 1286 -150 Intake: Oral (ml) 950 IV Infused (ml) 2520 1646 Albumin 5% 500 ml @ As 500 Directed IV ONCE ONE Rx#: [id number] Ns 1,000 ml @ 75 mls/hr 1020 1646 IV CONT SANDY Rx#: [id number] Ns 500 ml @ As Directed 500 IV ONCE ONE Rx#: [id number] Ns 500 ml @ As Directed 500 IV ONCE ONE Rx#: [id number] Output: Urine (ml) 960 1310 150 Bedpan 150 Bedside Commode 360 1310 150 Catheter 450 Other: Weight 77 kg Output Comment Catheter straight cath Number of Voids Bedside Commode 4 1 Post Void Residual Scan Volume (ml) Bedside Commode 80 Result Diagrams: 11/26/18 05:25 11/27/18 04:50 Cardiac Labs: Cardiac Lab Results (72 Hrs) 11/27/18 11/26/18 11/26/18 04:50 13:10 05:25 CK-MB (CK-2) Fraction 92.90 H 191.00 H Troponin I 40.400 H 37.200 H 24.200 H 11/25/18 11/25/18 21:45 21:25 CK-MB (CK-2) Fraction 63.60 H REJ Troponin I 7.150 H REJ - Physical Exam Constitutional: apparent distress Eyes: anicteric sclera Ears, Nose, Mouth, Throat: moist mucous membranes Cardiovascular: regular rate and rhythm, no murmurs, no gallops Respiratory: clear to auscultate bilat Gastrointestinal: normoactive bowel sounds, no tenderness, no masses Skin: no rashes, no edema Neurologic: AAOx3 ICD10 Worksheet Patient Problems: Problems Problem Status Onset STEMI (ST elevation myocardial infarction) Acute
[2018-11-27] MEDS ORDERED: IOPAMIDOL (ISOVUE-300) 100 ML BTL ONE (15:26)
[2018-11-27] MEDS ORDERED: NITROGLYCERIN 0.4 MG BTL SL PRN ×2 (17:12→17:14)
[2018-11-27] MEDS: NITROGLYCERIN 0.4 MG BTL SL PRN ×2 (17:17→17:34)
[2018-11-27] MEDS: LORazepam 2 MG/ML INJ IVP PRN ×2 (17:25→22:39)
[2018-11-27] MEDS: NS 1,000 ML IV SCH (18:10)
[2018-11-28] MEDS: HYDROmorphONE/DILAUDID 1 MG/ML INJ IVP PRN (01:18)
[2018-11-28 01:45] LABS: PLATELET COUNT 229 10^3/uL (150-400)
[2018-11-28] MEDS ORDERED: NS 500 ML IV ONE (01:50)
[2018-11-28] MEDS ORDERED: DOPamine/DEXTROSE 400 MG/250 ML BAG IV ONE (01:53)
[2018-11-28] MEDS: ONDANSETRON 4 MG/2 ML VIAL IVP PRN (02:13)
[2018-11-28] MEDS: NOREPINEPHRINE BITARTRATE 4 MG in NS 500 ML IV SCH ×4 (02:37→21:58)
[2018-11-28] MEDS ORDERED: PERFLUTREN LIPID MICROSPHERES 1.1 MG/ML VIAL IV ONE ×3 (02:45→06:30)
--- NOTE | 2018-11-28 04:33 | PDHOSCONS ---
History and Physical - Chief Complaint Hypotension and chest pain - History of Present Illness Source-patient is not able to provide any history as she increasingly somnolent and hypotensive. EMR was reviewed and case discussed with Dr. Alcantar. Consult requested by Dr. Alcantar - to assist in management of acute hypotension, CP and altered mental status. STAT team called overnight. Patient recently transferred from ICU following STEMI 2/2 SCAD not amenable to angioplasty/PCI. HPI - this is a pleasant 73-year-old female with past medical history significant for HTN, chronic pain who was previously active and employed admitted 11/25/18 following STEMI related to SCAD. 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 This is not amenable to angioplasty or PCI. Patient was subsequently transferred back to the ICU with plans to pursue conservative medical management. Patient had been doing well on the day prior to this consult and subsequently transferred from the ICU to PCU. Patient did develop an episode of some chest discomfort with left shoulder pain. She did receive a dose of nitroglycerin however her blood pressures subsequently did not tolerate this. Of note, patient has restricted extremities in both arms with the left having a PICC in place at and the right with a history of lymph node dissection. Patient 's blood pressures have been monitored but stabled distally at her wrists. A stat team was called early in the morning due to patient sudden development of hypotension. Patient had been complaining of severe chest pain she was and she was given a dose of Dilaudid. Subsequent to this patient had developed hypotension with declining mental status. She was given a bolus of IV fluids which temporarily improved her blood pressures and subsequently declined again. Patient maintained palpable pulses although due to the limitations of blood pressure sites SBP was noted at one point 50s over 30s. Patient was subsequently transferred to the ICU where she was given 0.2 mg dose of Narcan with improvement in her mentation but no significant change in blood pressure. As patient's mentation improved she also had increasing complaints of chest discomfort. She was started on dopamine drip. Multiple attempts to contact daughter and son were made without success except for voicemail. Dr. Alcantar arrive to bedside for stat echo. Patient ultimately required addition of Levophed to maintain her blood pressures. History Information - Allergies/Home Medication List Allergies/Adverse Reactions: codeine Allergy (Verified 11/25/18 13:13) Home Medications: Lisinopril [Zestril 40 mg (*)] 40 mg PO DAILY 11/25/18 [Last Taken Unknown] FLUoxetine [Prozac 20 MG (*)] 60 mg PO DAILY 11/26/18 [Last Taken Unknown] Methylphenidate HCl [Ritalin 20mg (*)] 20 mg PO BID@06,12 11/26/18 [Last Taken Unknown] Omeprazole 40 mg PO DAILY 11/26/18 [Last Taken Unknown] I have personally reviewed and updated: medical history, social history, surgical history - Past Medical History Additional medical history: HTN, chronic pain, osteoarthritis. New to admission -STEMI, scad of distal left circumflex. - Surgical History Additional surgical history: Cardiac cath with attempts at angioplasty and PCI unsuccessful due to dissection. Bilateral shoulder surgery. Lumpectomy with lymph node dissection on the right. Nerve stimulator implanted - Family History Additional family history: Unable to obtain due to patient's mental status. - Social History Smoking Status: Former smoker Tobacco Use: Cigarettes Alcohol Use: None Drug Use: None Additional social history: Patient is employed and lives in [place]. She has good support from her son and daughter who live in [place]. Review of Systems Review of Systems: ROS: 10pt was reviewed & negative except for what was stated in HPI & below ( Patient complains of chest pain. Otherwise unable to obtain history as patient initially somnolent and acutely ill warranting brief review of systems..) Physical Exam Physical Exam: Temp Pulse Resp BP Pulse Ox 36.7 C 64 26 H 106/68 88 L 11/28/18 01:59 11/28/18 01:59 11/28/18 01:59 11/27/18 23:38 11/28/18 01:59 O2 (L/minute) 6 Constitutional: no apparent distress, chronically ill appearing, obese, uncomfortable Eyes: PERRL (Decreased reactivity light bilaterally but symmetric.), anicteric sclera, other (No nasal discharge.), No scleral injection Ears, Nose, Mouth, Throat: dry mucous membranes, other (Patient with dry cracked lips.), No poor dentition Cardiovascular: regular rate and rhythym, pulses symmetric bilaterally, tachycardia (HR 110s), No edema Peripheral Pulses: 1+: dorsalis-pedis (R) (Pulses occasionally fainted and thready), dorsalis-pedis (L) (Pulses occasionally faint and thready) Respiratory: no rales or rhonchi, clear to auscultation, reduced air movement, other (Tachypneic), No inspiratory crackles Gastrointestinal: normoactive bowel sounds, soft, non-tender abdomen, no palpable masses, other (Obese abdomen), No guarding, No distension Genitourinary: no bladder tenderness, No rosenthal in urethra Skin: warm, no rashes or abrasions, no induration, other (Pallor. Contusion on bilateral upper extremities at draw sites.) Musculoskeletal: full muscle strength (Patient is able to move all extremities. She does attempt to sit up multiple times.), generalized weakness, No pain with ROM Neurologic: sensation intact bilaterally, other (Grossly nonfocal exam.), No AAOx3, No facial droop Psychiatric: encephalopathic, anxious, flat affect, agitated, No depressed Lymph, Heme, Immunologic: no cervical LAD, no supraclavicular LAD Lab Data & Imaging Review 11/28/18 01:35 11/28/18 01:35 WBC 14.99 10^3/uL (3.80-9.50) H 11/28/18 01:35 RBC 4.14 10^6/uL (4.18-5.33) L 11/28/18 01:35 Hgb 11.6 g/dL (12.6-16.3) L 11/28/18 01:35 POC Hgb 13.9 gm/dL (12.6-16.3) 11/25/18 13:12 Hct 36.8 % (38.0-47.0) L 11/28/18 01:35 POC Hct 41 % (38-47) 11/25/18 13:12 MCV 88.9 fL (81.5-99.8) 11/28/18 01:35 MCH 28.0 pg (27.9-34.1) 11/28/18 01:35 MCHC 31.5 g/dL (32.4-36.7) L 11/28/18 01:35 RDW 14.9 % (11.5-15.2) 11/28/18 01:35 Plt Count 229 10^3/uL (150-400) 11/28/18 01:35 MPV 10.6 fL (8.7-11.7) 11/28/18 01:35 Neut % (Auto) 78.0 % (39.3-74.2) H 11/28/18 01:35 Lymph % (Auto) 12.3 % (15.0-45.0) L 11/28/18 01:35 [place] % (Auto) 8.9 % (4.5-13.0) 11/28/18 01:35 Eos % (Auto) 0.1 % (0.6-7.6) L 11/28/18 01:35 Baso % (Auto) 0.2 % (0.3-1.7) L 11/28/18 01:35 Nucleat RBC Rel Count 0.0 % (0.0-0.2) 11/28/18 01:35 Absolute Neuts (auto) 11.68 10^3/uL (1.70-6.50) H 11/28/18 01:35 Absolute Lymphs (auto) 1.85 10^3/uL (1.00-3.00) 11/28/18 01:35 Absolute Monos (auto) 1.34 10^3/uL (0.30-0.80) H 11/28/18 01:35 Absolute Eos (auto) 0.01 10^3/uL (0.03-0.40) L 11/28/18 01:35 Absolute Basos (auto) 0.03 10^3/uL (0.02-0.10) 11/28/18 01:35 Absolute Nucleated RBC 0.00 10^3/uL (0-0.01) 11/28/18 01:35 Immature Gran % 0.5 % (0.0-1.1) 11/28/18 01:35 Immature Gran # 0.08 10^3/uL (0.00-0.10) 11/28/18 01:35 PT 13.1 SEC (12.0-15.0) 11/26/18 05:25 INR 1.03 (0.83-1.16) 11/26/18 05:25 APTT 21.0 SEC (23.0-38.0) L 11/26/18 05:25 POC Sodium 140 mEq/L (135-145) 11/25/18 13:12 Sodium 136 mEq/L (135-145) 11/28/18 01:35 POC Potassium 4.5 mEq/L (3.3-5.0) 11/25/18 13:12 Potassium 4.8 mEq/L (3.5-5.2) 11/28/18 01:35 POC Chloride 109 mEq/L (97-110) 11/25/18 13:12 Chloride 110 mEq/L (97-110) 11/28/18 01:35 Carbon Dioxide 19 mEq/l (22-31) L 11/28/18 01:35 POC Total CO2 18 mEq/L (22-31) L 11/25/18 13:12 Anion Gap 7 mEq/L (6-14) 11/28/18 01:35 POC BUN 34 mg/dL (7-23) H 11/25/18 13:12 BUN 13 mg/dL (7-23) 11/28/18 01:35 Creatinine 1.0 mg/dL (0.6-1.0) 11/28/18 01:35 POC Creatinine 1.2 mg/dL (0.6-1.0) H 11/25/18 13:12 Estimated GFR 55 11/28/18 01:35 Glucose 136 mg/dL (70-100) H 11/28/18 01:35 POC Glucose 116 mg/dL (70-100) H 11/25/18 13:12 Calcium 8.7 mg/dL (8.5-10.4) 11/28/18 01:35 Magnesium 2.0 mg/dL (1.6-2.3) 11/27/18 04:50 Creatine Kinase 996 IU/L (0-156) H 11/27/18 04:50 CK-MB (CK-2) Fraction 92.90 ng/mL (0.00-4.55) H 11/27/18 04:50 CK-MB (CK-2) % 9.3 % (0.0-4.0) H 11/27/18 04:50 Creatine Kinase Interp POSITIVE (NEGATIVE) H 11/27/18 04:50 POC Troponin I 0.76 ng/mL (0.00-0.08) H 11/25/18 13:09 Troponin I 26.600 ng/mL (0.000-0.034) H 11/28/18 01:35 NT-Pro-B Natriuret Pep 954 pg/mL (0-125) H 11/26/18 05:25 Triglycerides 88 mg/dL (35-135) 11/26/18 05:25 Cholesterol 151 mg/dL (140-220) 11/26/18 05:25 Cholesterol Risk Factr 0.4 (0.2-1.0) 11/26/18 05:25 LDL Cholesterol, Calc 70 mg/dL (80-100) L 11/26/18 05:25 LDL Risk Factor 0.5 (0.2-1.0) 11/26/18 05:25 VLDL Cholesterol 18 mg/dL (8-25) 11/26/18 05:25 Non-HDL Cholesterol 88 mg/dL (90-129) L 11/26/18 05:25 HDL Cholesterol 63 mg/dL (40-85) 11/26/18 05:25 LDL/HDL Ratio 1.12 RATIO (1.00-3.22) 11/26/18 05:25 Cholesterol/HDL Ratio 2.40 RATIO (1.00-4.44) 11/26/18 05:25 Patient ABO/Rh A POSITIVE 11/28/18 02:25 Antibody Screen NEGATIVE 11/28/18 02:25 Imaging Review: Chest x-ray-image reviewed myself. Report is still pending. Slightly rotated imaged. Cardiomegaly. Left lower lobe effusion. Diminished lung sanchez. No consolidations. Visualized and Interpreted Chest x-ray results: Yes Chest X-Ray results: no infiltrate, effusion Visualized and Interpreted EKG results: Yes EKG Interpretation: Positive for: normal sinsus rhythm, Q waves, ST elevation ( Diffuse ST elevations new in leads V3, V4, Q-waves in the inferior leads.), ST depression, T waves inversion EKG additional interpertation: NSR in the 50s. Q-waves in the inferior leads. ST elevations in numerous precordial leads however they are new in V3 V4. QTC is 4 36. Assessment & Plan Assessment: this is a pleasant 73-year-old female with past medical history significant for HTN, chronic pain who was previously active and employed admitted 11/25/18 following STEMI related to SCAD distal left circ. #shock cardiogenic shock in setting of VA, dissection, CHF. no evidence of infectious process or hemorrhage - continue to titrate down on dopamine and levophed maintain MAP 65 or greater. patient with moderate pericardial effusion per cardiology. initial concern for tamponade before echo but no plans for pericardiocentesis at this time with improved pressures/status per cardiology. Also consideration for a pericarditis. #chest pain - patient c/o central chest pain with radiation to left shoulder and severe before onset of hypotension. she repeats desire to sit up as she is quite restless and uncomfortable. consideration for pericardial/pleuritic component discussed with cardiology. chest pain has eventually subsided with patient resting. will try to minimize IV narcotics 2/2 patient mentation/ respiratory response and need for low dose narcan previously. #STEMI on 11/25/2018 - 09/30 SCAD distal circumflex not amenable to intervention. plan to continue conservative management. #spont dissection of coronary artery - continue pressor support at this time. per Dr. Alcantar no evidence of perforation with bedside echo. once patient bps stabilize and off pressors plan to continue with antiplatelet therapy, beta trudy, ACEI. #acute on chronic d/s CHF - bp support as noted above. monitor volume status with bedside echo EF 25%. #anemia - hh stable no evidence of hemorrhage/perforation. #pericardial effusion - no intervention planned. #left pleural effusion - supportive care no intervention planned. supplemental oxygen. #hypoxia - improved s/p narcan. patient requiring NR. respiratory status now improved #leukocytosis - patient afebrile. likely reactive changes with shock/ hypotension. FEN - s/p 500 ml bolus wide open. cautious IVF in setting of worsening heart function. electrolyte monitoring and replacement prn. cardiac diet. PPX - SCDs. holding anticoagulation while monitoring for effusion/rupture COR - FULL. Dispo - Patient transferred from PCU to ICU. Thank you for this consultation we will follow along with you. Critical care time 45 minutes.
--- NOTE | 2018-11-28 05:55 | CPEKG ---
Test Reason : OPEN Blood Pressure : / mmHG Vent. Rate : 071 BPM Atrial Rate : 071 BPM P-R Int : 182 ms QRS Dur : 097 ms QT Int : 379 ms P-R-T Axes : 079 001 -18 degrees QTc Int : 412 ms Sinus rhythm Inferior infarct, recent Anterolateral infarct, acute Confirmed by Christopher Cowan ([id number]) on 11/28/2018 5:55:22 AM Referred By: Juan Plasencia Confirmed By:Christopher Cowan
--- NOTE | 2018-11-28 05:55 | CPEKG ---
Test Reason : OPEN Blood Pressure : / mmHG Vent. Rate : 059 BPM Atrial Rate : 059 BPM P-R Int : 200 ms QRS Dur : 099 ms QT Int : 440 ms P-R-T Axes : 086 -30 -17 degrees QTc Int : 436 ms Sinus rhythm Inferior infarct, recent Probable anterolateral infarct, old Confirmed by Christopher Cowan ([id number]) on 11/28/2018 5:55:07 AM Referred By: Juan Plasencia Confirmed By:Christopher Cowan
[2018-11-28] MEDS ORDERED: fentaNYL 100 MCG/2 ML INJ ONE (08:43)
[2018-11-28] MEDS ORDERED: LIDOCAINE 1% 300 MG/30 ML SDV ONE (08:43)
[2018-11-28] MEDS ORDERED: MIDAZOLAM 2 MG/2 ML VIAL ONE (08:43)
[2018-11-28] MEDS: METOPROLOL TARTRATE 25 MG TAB PO SCH (08:45)
--- NOTE | 2018-11-28 09:08 | PDHPUP ---
History & Physical Update H&P update statement: This history and physical update is based on an assessment of the patient which was completed after admission or registration (within 24 hours), but prior to the surgery/procedure. H&P update: H&P reviewed & patient examined, changes noted (Increased chest pain with increasing effusion. Developed hypotension with need for IV pressor support. Picture consistent with pericardial tamponade.)
--- NOTE | 2018-11-28 09:08 | PDPROPOC ---
Sedation Plan of Care Sedation Plan of Care: mental status noted, patient educated of risks, benefits , alternatives, patient can tolerate sedation ASA Classification: ASA 2 Planned drugs: fentanyl, midazolam Mallampati Score: Class 2 Mallampati Reference Image: Patient passed 3-3-2 rule?: Yes
[2018-11-28] MEDS: FAMOTIDINE 20 MG TAB PO SCH (10:33)
[2018-11-28] MEDS: COLCHICINE 0.6 MG CAP/TAB PO SCH ×2 (10:33→21:56)
[2018-11-28] MEDS: ACETAMINOPHEN 325 MG TAB PO PRN (10:55)
[2018-11-28] MEDS: FLUoxetine 20 MG CAP PO SCH (10:56)
--- NOTE | 2018-11-28 11:38 | GPROG ---
[f rep st] PROGRESS NOTE DATE OF SERVICE: 11/28/2018 I was called by the RN on taking care of the patient at 1:30 the patient had develo ped worsening chest discomfort, 10/10, and hypotension. Chart, calf film, serial echocardiograms, serial EKGs are reviewed. In summary, the patient is a 73-year-old female with a past history of hypertension and chronic shoul sharee pain. She presented to the hospital on November [address]-elevation OR. She was taken urgently to the laboratory specialist by Dr. Plasencia. She was found to have an occlusion of her dista l codominant left circumflex. 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 Attempts at percutaneous intervention were not successful. Since admission, over the past 48 hours, she has had intermittent chest discomfort. Her troponins garcia ve trended down. Her EKG shown expected evolution of inferolateral ST elevation OR. Around 5 p.m. y evening, she had worsening chest discomfort that was managed with 1 mg of Ativan and she was also given a sublingual nitroglycerin. Her pressure dropped briefly in the 80s, but then rebounded. I am not sure if she got IV fluids at that time. As mentioned, I was called at 1:30 with escalating chest pain and hypotension. The hypote nsion happened about 50 minutes after she had received Dilaudid 0.4 mg IV. A Stat team was called. She was transferred to the ICU. Dr. Tristan from [facility] came to evaluate the patient and I also arrived to the bedside. The patient was complaining of severe chest pain with radiation to the left shoulder. She could not tell me if the pain was better with lying down or sitting up. Dopamine was started with some improvement. She was given 500 cc normal saline bolus. A bedside chest x-ray showed enlarged cardiac silhouette without significant pulmonary parenchymal process. Repeat EKG showed slight worsening of her inferolateral ST elevation, but no new ischemic EKG changes . A bedside echo with Definity contrast showed overall preserved LV systolic function with inferolat eral hypokinesis. Her right ventricle is slightly compressed by a new pericardial effusion that byron ures 2 cm in the subcostal view. This contained some fibrinous debris. With Definity contrast, we d id not demonstrate any evidence of ventricular rupture. At this point, Levophed was added to the dopamine and the dopamine was weaned down as she was tachyca rdic. We are giving her an additional 1 L IV of normal saline. Pressures have improved somewhat. H er pain is improved and she is now resting comfortably. She did receive a single dose of Narcan upon arrival in ICU, which improved her mental status and she is now mentating normally. PHYSICAL EXAM: VITAL SIGNS: Blood pressures been between mid 70s and low 100s systolic, heart rate in the 120s. Oxygen saturation 91% on 10 L oximeter mask. Respiratory rate is 28. She is mildly di aphoretic. She is now more comfortable. EXTREMITIES: Warm and well perfused. There is no edema. Intact distal pulses. NEURO: She is sleepy, but arousable and answers questions appropriately. No gross focal neurologic deficits. LABORATORY DATA: Repeat CBC tonight shows a white count of 15, hematocrit 36.8, which is down only s lightly from 11/26 at 37.4, platelets are 229. INR yesterday was 1.03. Sodium 136, potassium 4.8, c hloride 110, bicarb 19, BUN 13, creatinine 1. Her troponin peaked at 40 and was 31.9 at 1715 on 1, 26.6 at 1:35 a.m. on 11/28. Peak CK 1253. Serial EKGs as detailed above. Chest x-ray as detailed above. Echocardiogram as detailed above and compared with 11/26/2017, there is a new pericardial effusion wi th pre-tamponade physiology, but no overt tamponade and no evidence of ventricular rupture. ASSESSMENT AND PLAN: 73-year-old female, she is approximately 60 hours post presentation for acute i nferolateral ST-elevation myocardial infarction, not amenable to percutaneous coronary intervention. 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 She is now hypotensive with ongoing pain, but ov erall somewhat improved over the last 90 minutes. Differential diagnoses, includes myocardial rupture, coronary artery event, tamponade, right ventricl e involvement of her original ST-elevation myocardial infarction, with overlay of drug effect from At gil and Dilaudid. She is now hemodynamically more stable on Levophed and dopamine. 1. Wean dopamine as tolerated to improve diastolic filling time.. 2. Aggressive intravenous fluid resuscitation. 3. No further narcotics. Could consider repeat dose of Narcan depending on mental status. 4. Repeat echocardiogram in 2 to 3 hours to reassess pericardial effusion. Use Definity to reassess for ventricular rupture. 5. Low threshold for cardiac laboratory specialist and right heart catheterization to further define her hemodyna mics, which seem to be responding well to intravenous fluids and pressures at this time. I do not th ink she has sepsis. 6. We will repeat EKG and troponin in 3 hours as well. Type and screen have been sent. Low thresho ld to contact Cardiac Surgery as well. 7. Multiple attempts to contact the patient's daughter and updated her about her clinical situation. Awaiting call back. Greater than 60 minutes of critical care time deidra. /[id number]/MODL
[2018-11-28] MEDS: CLOPIDOGREL BISULFATE 75 MG TAB PO SCH (13:02)
[2018-11-28] MEDS: ASPIRIN 325 MG TAB PO SCH (13:02)
--- NOTE | 2018-11-28 13:09 | ASMTCMCOM ---
CM Note CM Note Notes: Patient was hypotensive and obtunded overnight. She had worsening pericardial effusion and went to the [employer] stores this morning. Patient's pain levels are also increased. Remain ICU today. D/C plan currently is cardiac rehab on outpatient basis. CM will follow for changing needs that may occur. Date Signed: 11/28/2018 01:06 PM Electronically Signed By:Reina Oakes LCSW
[2018-11-28] MEDS: ENOXAPARIN 40 MG/0.4 ML SYR SC SCH (13:14)
--- NOTE | 2018-11-28 13:34 | CPIP ---
[f rep st] INVASIVE CARDIAC PROCEDURE DATE OF PROCEDURE: 11/28/2018 PROCEDURE PERFORMED: Pericardiocentesis. INDICATION: Recent ST-segment elevation myocardial infarction with post infarction pericarditis and pericardial tamponade. DETAILS OF PROCEDURE: The patient was prepped and draped in sterile fashion. Continuous echocardiog mere was performed from the apical view. The subxiphoid area was anesthetized with 1% lidocaine. A n 18-gauge needle was introduced into the pericardial space. A J-tip guidewire was advanced into the pericardial space. A pericardial drain was advanced over the guidewire. A total of 240 cc of hemor rhagic appearing fluid was aspirated. This resulted in immediate improvement in the patient's hemody namicswith a decrease in her heart rate of 25 beats per minute and increase in her systolic blood pre ssure in excess of 50 mmHg. On echocardiography, id the right atrium and right ventricle, which were previously compressed assumed their normal dimensions. COMPLICATIONS: None. Uneventful pericardiocentesis. /[id number]/MODL
--- NOTE | 2018-11-28 13:55 | ECHO ---
[email or web address] [address] [address] Main: [phone] Echocardiography Examination Transthoracic Name: CLARIBEL NEGRON MR#: [id number] Study Date: 11/28/2018 Study Time: 06:36 AM Date of : 1945 Age: 73 year(s) Height: 167.6 cm (66 in.) Weight: 84.37 kg (186 lb.) BSA: 1.94 m2 Gender: Female Examination: Echo with Definity Contrast: 0.165 mg I.V. dose of Definity was administered Image Quality: Adequate Rhythm: Heart Rate: BP: 66 mmHg/44 mmHg Indication: re evaluate pericardial effusion and assess for ventricular rupture Procedure Staff Referring Physician: Crop Setting Out Machine Operator: Ai Brenner [facility] Reading Physician: Raza Mooney MD Requesting Provider: Ordering Physician: Molly Alcantar MD Indication: re evaluate pericardial effusion and assess for ventricular rupture Conclusions (1) Left ventricular systolic ejection fraction was normal (55%) - inferior and inferolateral hypokinesis was noted (2) Pericardial effusion to 2.4 cm was noted with mild increase in comparison to prior. There is both right atrial and ventricular collapse noted in this study - consistent with tamponade physiology. Findings Left Ventricle: The EF is visually estimated to be 55 %. Regional wall motion abnormality noted. There is inferolateral and inferior hypokinesis. Mitral Valve: No significant mitral regurgitation. Mitral valve is normal in appearance. Aortic Valve: Aortic leaflets are normal in appearance. Mild aortic regurgitation is present. Tricuspid Valve: Tricuspid valve leaflets are normal in appearance. Trivial tricuspid regurgitation. Pericardium: There is a pericardial effusion present measuring 2.4 cm. The effusion appears to have possibly mildly increased since prior echo. There is right atrial and right ventricular collapse. Exam Details Patient: CLARIBEL NEGRON Study Date: 11/28/2018 Page 1 of 2 06:36 AM Procedure Ordered: Echo with Definity Procedure Status: Routine study Image Quality: Adequate Contrast: 0.165 mg I.V. dose of Definity was administered Facility Location: Cardiac Echo 1 (No Signature Object) Patient: CLARIBEL NEGRON Study Date: 11/28/2018 Page 2 of 2 06:36 AM [id number]
--- NOTE | 2018-11-28 13:57 | HOSPPROG ---
Hospitalist Progress Note Assessment/Plan: #Pericardial tamponade: hypotension overnight, requiring pressors. Taken to lab support service tech for drainage today -add gentle IV fluids #STEMI: LCx occlusion with dissection, not amendable to stenting #Pericarditis: colchicine #Metabolic encephalopathy: improved with Narcan. Avoid these meds #Chronic pain: no longer on opioids outpatient #Diet: cardiac #DVT ppx: SCDs Inpatient admission for Subjective: c/o headache, pain "all over" Objective: Vital Signs Temp Pulse Resp BP Pulse Ox 36.6 C 59 L 20 105/64 95 11/28/18 11:01 11/28/18 13:48 11/28/18 13:48 11/28/18 13:48 11/28/18 13:48 Microbiology 11/28/18 09:40 Gram Stain - Final Pericardial Fluid - Aspirate Laboratory Results 11/28/18 06:45 11/28/18 06:45 11/27/18 11/28/18 11/29/18 05:59 05:59 05:59 Intake Total 2596 1507 498.1 Output Total 1310 350 360 Balance 1286 1157 138.1 PT 13.1 SEC (12.0-15.0) 11/26/18 05:25 INR 1.03 (0.83-1.16) 11/26/18 05:25 - Time Spent With Patient Time Spent with Patient: greater than 35 minutes Time Spent with Patient: Greater than 35 minutes spent on this patients care, greater than 50% of time spent counseling, educating, and coordinating care regarding the above mentioned plan. - Physical Exam Constitutional: uncomfortable Eyes: PERRL Ears, Nose, Mouth, Throat: moist mucous membranes Cardiovascular: regular rate and rhythym Respiratory: no respiratory distress Gastrointestinal: normoactive bowel sounds Genitourinary: no bladder fullness Psychiatric: encephalopathic ICD10 Worksheet Patient Problems: Problems Problem Status Onset STEMI (ST elevation myocardial infarction) Acute
--- NOTE | 2018-11-28 14:01 | ECHO ---
[email or web address] [address] [address] Main: [phone] Echocardiography Examination Transthoracic Name: CLARIBEL NEGRON MR#: [id number] Study Date: 11/28/2018 Study Time: 02:23 AM Date of : 1945 Age: 73 year(s) Height: 167.6 cm (66 in.) Weight: 76.66 kg (169 lb.) BSA: 1.86 m2 Gender: Female Examination: Echo with Definity Contrast: 0.330 mg I.V. dose of Definity was administered Image Quality: Adequate Rhythm: Heart Rate: BP: / Indication: recurrent chest pain Procedure Staff Referring Physician: Release Of Information Specialist: Ai Brenner [facility] Reading Physician: Raza Mooney MD Requesting Provider: Indication: recurrent chest pain Conclusions (1) Left ventricular systolic ejection fraction was normal (55%) - inferior and inferolateral hypokinesis noted (2) Pericardial effusion to 1.95 cm was noted with evidence of mild RA and RV collapse. Proteinaceous material in the pericardial fluid. Findings are suggestive of tamponade. Findings Definity was used to assess possible perforation. Left Ventricle: Left ventricle is normal in size. The EF is visually estimated to be 55 %. Regional wall motion abnormality noted. Inferolateral and inferior hypokinesis. Mitral Valve: No significant mitral regurgitation. Mitral valve is normal in appearance. Aortic Valve: Aortic leaflets are normal in appearance. No significant aortic valve regurgitation. Tricuspid Valve: Tricuspid valve leaflets are normal in appearance. Mild tricuspid regurgitation. Pericardium: There is a pericardial effusion measuring 1.95 cm. There is evidence of right ventricular and atrial collapse. Echogenicity noted in pericardial effusion most likely consistent with thrombus. Exam Details Procedure Ordered: Echo with Definity Patient: CLARIBEL NEGRON Study Date: 11/28/2018 Page 1 of 2 02:23 AM Procedure Status: Routine study Image Quality: Adequate Contrast: 0.330 mg I.V. dose of Definity was administered Facility Location: Cardiac Echo 1 (No Signature Object) Patient: CLARIBEL NEGRON Study Date: 11/28/2018 Page 2 of 2 02:23 AM [id number]
--- NOTE | 2018-11-28 15:58 | PDINTPN ---
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 This was associated probably to a distal circumflex arterial dissection. Could not be stented or ballooned. Returned to the ICU to complete the her infarct. Troponin peaked, came down, then bumped up again with pericardial effusion/tamponade. No arrhythmias. Ejection fraction overall was normal on catheterization, and on echo today estimated left ventricular ejection fraction is approximately 60%. Pericardial tamponade: With hypotension, bradycardia last night. Improved with pericardial drain, but still on NE. Chronic right shoulder pain, has a Tens unit. Prophylaxis: On enoxaparin and famotidine. History ADD: On Ritalin. Currently on hold secondary to potential cardio stimulation. History of hypertension. Her home lisinopril is on hold. Plan: Continue care in the intensive care unit. Continue hemodynamic monitoring. Monitor pericardial drain output. Continue pain control.Continue IV fluids. Follow laboratory. 11/28/18 15:58 Subjective: Feels much better, CP resolved, denies dyspnea. Objective: Vital Signs Temp Pulse Resp BP Pulse Ox 36.6 C 59 L 18 127/69 H 98 11/28/18 11:01 11/28/18 15:45 11/28/18 15:00 11/28/18 15:45 11/28/18 15:00 Microbiology 11/28/18 09:40 Gram Stain - Final Pericardial Fluid - Aspirate Laboratory Results 11/28/18 06:45 11/28/18 06:45 11/27/18 11/28/18 11/29/18 05:59 05:59 05:59 Intake Total 2596 1507 498.1 Output Total 1310 350 435 Balance 1286 1157 63.1 PT 13.1 SEC (12.0-15.0) 11/26/18 05:25 INR 1.03 (0.83-1.16) 11/26/18 05:25 Echocardiogram: 2.4 cm pericardial effusion with tamponade physiology. Laboratory Tests 11/27/18 11/28/18 11/28/18 17:15 01:35 06:45 Troponin I 31.900 H 26.600 H 27.900 H Physical Exam - Physical Exam General Appearance: alert, no apparent distress EENT: normal ENT inspection Neck: normal inspection Respiratory: lungs clear, No normal breath sounds Cardiac/Chest: regular rate, rhythm, No edema Abdomen: normal bowel sounds, non-tender Skin: normal color, warm/dry Extremities: normal inspection Neuro/Psych: alert, normal mood/affect, oriented x 3 ICD10 Worksheet Patient Problems: Problems Problem Status Onset STEMI (ST elevation myocardial infarction) Acute
[2018-11-28] MEDS ORDERED: HYDROmorphONE/DILAUDID 2 MG TAB PO PRN (17:43)
[2018-11-28] MEDS ORDERED: LORazepam 2 MG/ML INJ IVP PRN (17:45)
[2018-11-28] MEDS: NS 1,000 ML IV SCH (17:54)
[2018-11-29] MEDS: ONDANSETRON 4 MG/2 ML VIAL IVP PRN (06:33)
[2018-11-29 08:40] LABS: PLATELET COUNT 258 10^3/uL (150-400)
--- NOTE | 2018-11-29 09:00 | CPEKG ---
Test Reason : OPEN Blood Pressure : / mmHG Vent. Rate : 112 BPM Atrial Rate : 112 BPM P-R Int : 184 ms QRS Dur : 101 ms QT Int : 355 ms P-R-T Axes : 081 -17 -23 degrees QTc Int : 485 ms Sinus tachycardia Anterolateral infarct, recent Incomplete right bundle branch block Confirmed by Christopher Cowan ([id number]) on 11/29/2018 8:59:58 AM Referred By: Juan Plasencia Confirmed By:Christopher Cowan
[2018-11-29] MEDS: NOREPINEPHRINE BITARTRATE 4 MG in NS 500 ML IV SCH (09:05)
[2018-11-29] MEDS: NS 1,000 ML IV SCH (10:05)
--- NOTE | 2018-11-29 10:14 | ECHO ---
[email or web address] [address] [address] Main: [phone] Echocardiography Examination Transthoracic Name: CLARIBEL NEGRON MR#: [id number] Study Date: 11/29/2018 Study Time: 07:29 AM Date of : 1945 Age: 73 year(s) Height: 167.6 cm (66 in.) Weight: 84.37 kg (186 lb.) BSA: 1.94 m2 Gender: Female Examination: Echo Contrast: Image Quality: Adequate Rhythm: Heart Rate: BP: 89 mmHg/51 mmHg Indication: Chest Pain, hypotension Procedure Staff Referring Physician: Housekeeper Head: Ai Brenner [facility] Reading Physician: Raza Mooney MD Requesting Provider: Ordering Physician: Raza Mooney MD Indication: Chest Pain, hypotension Measurements Chambers AV/MV Label Value Normal Value Label Value Normal Value LVOTd 1.7 cm (1.8cm - 2cm) AV PGmax 26 mmHg LVDd, 2D 3.9 cm (3.9cm - 5.3cm) AV PGmean 14 mmHg LVDs, 2D 2.7 cm (2.1cm - 4cm) AV Vmax 2.6 m/s IVSd, 2D 1.4 cm (0.6cm - 1.1cm) JOSEPHINE (VTI) 1.2 cm2 LVPWd, 2D 1.4 cm MV E Vmax 0.69 m/s LVEF, 2D 58 % (54% - 74%) MV A Vmax 0.63 m/s LVOT PGmean 4 mmHg MV E/A 1.1 LVOT Vmean 0.91 m/s MV E/E' lateral 10.7 RVDd, 2D 2.1 cm (1.9cm - 3.8cm) MV E/E' septal 8.6 (0.45 - 1.25) LADs, 2D 3.1 cm (2.7cm - 3.8cm) MV DT 148 ms Additional Vessels MV E' septal 0.08 m/s Label Value Normal Value MV PHT 0.05 s AoAsc 3.1 cm MVA PHT 4.5 cm2 AoRoot, 2D 2.3 cm (1.4cm - 2.6cm) MV E' lateral 0.06 m/s IVC 2.5 cm (1.2cm - 2.3cm) MV E/E' mean 9.86 MV PHT 49 ms MV E' mean 0.07 m/s TV/PV Label Value Normal Value Patient: CLARIBEL NEGRON Study Date: 11/29/2018 Page 1 of 3 07:29 AM RA Pressure 5 mmHg RVSP 33 mmHg TR Pmax 28 mmHg TR Vmax 2.63 m/s PV PGmax 2 mmHg PV Vmax, Caliper 0.69 m/s (0.6m/s - 0.9m/s) Conclusions (1) Left ventricular systolic ejection fraction was normal (55%) - mild to moderate concentric LVH - inferior/inferolateral hypokinesis (unchanged) (2) Normal RV size and function (3) Mild LA dilation with normal RA dimensions (4) Mild MR (5) Trileaflet aortic valve with mild AI and mild aortic stenosis - mean gradient of 14 mm Hg (6) Mild TR - RVSP was 33 mm hg (7) Mild PI (8) Normal aorta dimensions (9) Small pericardial effusion. No tamponade physiology noted. There is more proteinaceous material in the pericardial fluid at this time. Findings Left Ventricle: Left ventricle is normal in size. Normal global systolic left ventricular function. The EF is visually estimated to be 55 %. There is mild to moderate concentric left ventricular hypertrophy. Regional wall motion abnormality noted. There is inferolateral and inferior hypokinesis noted. Right Ventricle: Normal size right ventricle. Right ventricular systolic function is normal. Left Atrium: The left atrium is mildly dilated. Mitral Valve: Mitral valve appears structurally normal. Mild mitral regurgitation. No mitral valve stenosis. Aortic Valve: Aortic leaflets are structurally normal. Mild aortic regurgitation is present. There is mild aortic stenosis. Tricuspid Valve: Tricuspid valve leaflets are structurally normal. Mild tricuspid regurgitation. No tricuspid valve stenosis. Right Ventricular systolic pressure is measured at 33 mmHg. Pulmonary artery pressure normal. Pulmonic Valve: Pulmonic leaflets are structurally normal. Mild pulmonic valve regurgitation is present. Aorta: The aortic root size in 2D measures 2.3 cm. The ascending aorta measures 3.1 cm. Aorta Measurements AoRoot, 2D is 2.3 cm. IVC: The inferior vena cava is mildly dilated. Pericardium: There is some residual pericardial effusion noted post pericardiocentesis with evidence of fibrinous echogenicity. No obvious evidence of tamponade or right atrial/ventricular collapse. Exam Details Patient: CLARIBEL NEGRON Study Date: 11/29/2018 Page 2 of 3 07:29 AM Procedure Ordered: Echo Procedure Status: Routine study Image Quality: Adequate Facility Location: Cardiac Echo 1 (No Signature Object) Patient: CLARIBEL NEGRON Study Date: 11/29/2018 Page 3 of 3 07:29 AM [id number]
[2018-11-29] MEDS ORDERED: LIDOCAINE 2% 5 ML SDV ONE (10:21)
[2018-11-29] MEDS ORDERED: LIDOCAINE 2% 5 ML SDV IF ONE (10:45)
--- NOTE | 2018-11-29 10:49 | PDGENHP ---
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 Pt is s/p pericardial drain placement by cardiology on 11/28 with TTE this AM showing residual effusion in need of further drainage. Pt is currently comfortable in bed without complaints. She is confused as to the events of her hospitalization. History Information - Allergies/Home Medication List Allergies/Adverse Reactions: codeine Allergy (Verified 11/25/18 13:13) Home Medications: Lisinopril [Zestril 40 mg (*)] 40 mg PO DAILY 11/25/18 [Last Taken Unknown] FLUoxetine [Prozac 20 MG (*)] 60 mg PO DAILY 11/26/18 [Last Taken Unknown] Methylphenidate HCl [Ritalin 20mg (*)] 20 mg PO BID@06,12 11/26/18 [Last Taken Unknown] Omeprazole 40 mg PO DAILY 11/26/18 [Last Taken Unknown] I have personally reviewed and updated: medical history, social history, surgical history - Past Medical History Additional medical history: HTN, chronic pain, osteoarthritis. New to admission -STEMI, scad of distal left circumflex. - Surgical History Additional surgical history: Cardiac cath with attempts at angioplasty and PCI unsuccessful due to dissection. Bilateral shoulder surgery. Lumpectomy with lymph node dissection on the right. Nerve stimulator implanted - Family History Additional family history: Unable to obtain due to patient's mental status. - Social History Smoking Status: Former smoker Tobacco Use: Cigarettes Alcohol Use: None Drug Use: None Additional social history: Patient is employed and lives in [place]. She has good support from her son and daughter who live in [place]. Review of Systems Review of Systems: Constitutional: Reports: no symptoms EENMT: Reports: no symptoms Cardiac: Reports: no symptoms Respiratory: Reports: no symptoms Gastrointestinal: Reports: no symptoms Genitourinary: Reports: no symptoms Muscolosketal: Reports: no symptoms Skin: Reports: no symptoms Neurological: Reports: no symptoms Physical Exam Physical Exam: Temp Pulse Resp BP Pulse Ox 36.3 C 105 H 19 76/61 L 92 11/29/18 10:00 11/29/18 10:42 11/29/18 10:00 11/29/18 10:47 11/29/18 10:00 O2 (L/minute) 5 Constitutional: no apparent distress, not in pain, obese Eyes: anicteric sclera Ears, Nose, Mouth, Throat: moist mucous membranes, hearing normal Cardiovascular: irregularly irregular Respiratory: no respiratory distress Gastrointestinal: soft, non-tender abdomen Genitourinary: no bladder fullness Skin: warm, normal color Musculoskeletal: full muscle strength Neurologic: No AAOx3 Psychiatric: not anxious, encephalopathic Lab Data & Imaging Review 11/29/18 08:20 11/29/18 03:30 WBC 16.60 10^3/uL (3.80-9.50) H 11/29/18 08:20 RBC 3.88 10^6/uL (4.18-5.33) L 11/29/18 08:20 Hgb 10.9 g/dL (12.6-16.3) L 11/29/18 08:20 POC Hgb 13.9 gm/dL (12.6-16.3) 11/25/18 13:12 Hct 33.0 % (38.0-47.0) L 11/29/18 08:20 POC Hct 41 % (38-47) 11/25/18 13:12 MCV 85.1 fL (81.5-99.8) 11/29/18 08:20 MCH 28.1 pg (27.9-34.1) 11/29/18 08:20 MCHC 33.0 g/dL (32.4-36.7) 11/29/18 08:20 RDW 15.4 % (11.5-15.2) H 11/29/18 08:20 Plt Count 258 10^3/uL (150-400) 11/29/18 08:20 MPV 10.9 fL (8.7-11.7) 11/29/18 08:20 Neut % (Auto) 88.0 % (39.3-74.2) H 11/29/18 08:20 Lymph % (Auto) 6.0 % (15.0-45.0) L 11/29/18 08:20 [place] % (Auto) 4.9 % (4.5-13.0) 11/29/18 08:20 Eos % (Auto) 0.2 % (0.6-7.6) L 11/29/18 08:20 Baso % (Auto) 0.2 % (0.3-1.7) L 11/29/18 08:20 Nucleat RBC Rel Count 0.1 % (0.0-0.2) 11/29/18 08:20 Absolute Neuts (auto) 14.61 10^3/uL (1.70-6.50) H 11/29/18 08:20 Absolute Lymphs (auto) 0.99 10^3/uL (1.00-3.00) L 11/29/18 08:20 Absolute Monos (auto) 0.82 10^3/uL (0.30-0.80) H 11/29/18 08:20 Absolute Eos (auto) 0.04 10^3/uL (0.03-0.40) 11/29/18 08:20 Absolute Basos (auto) 0.03 10^3/uL (0.02-0.10) 11/29/18 08:20 Absolute Nucleated RBC 0.02 10^3/uL (0-0.01) H 11/29/18 08:20 Immature Gran % 0.7 % (0.0-1.1) 11/29/18 08:20 Immature Gran # 0.11 10^3/uL (0.00-0.10) H 11/29/18 08:20 PT 13.1 SEC (12.0-15.0) 11/26/18 05:25 INR 1.03 (0.83-1.16) 11/26/18 05:25 APTT 21.0 SEC (23.0-38.0) L 11/26/18 05:25 POC Sodium 140 mEq/L (135-145) 11/25/18 13:12 Sodium 138 mEq/L (135-145) 11/29/18 03:30 POC Potassium 4.5 mEq/L (3.3-5.0) 11/25/18 13:12 Potassium 4.6 mEq/L (3.5-5.2) 11/29/18 03:30 POC Chloride 109 mEq/L (97-110) 11/25/18 13:12 Chloride 113 mEq/L (97-110) H 11/29/18 03:30 Carbon Dioxide 16 mEq/l (22-31) L 11/29/18 03:30 POC Total CO2 18 mEq/L (22-31) L 11/25/18 13:12 Anion Gap 9 mEq/L (6-14) 11/29/18 03:30 POC BUN 34 mg/dL (7-23) H 11/25/18 13:12 BUN 25 mg/dL (7-23) H 11/29/18 03:30 Creatinine 1.5 mg/dL (0.6-1.0) H 11/29/18 03:30 POC Creatinine 1.2 mg/dL (0.6-1.0) H 11/25/18 13:12 Estimated GFR 34 11/29/18 03:30 Glucose 89 mg/dL (70-100) 11/29/18 03:30 POC Glucose 116 mg/dL (70-100) H 11/25/18 13:12 Calcium 7.8 mg/dL (8.5-10.4) L 11/29/18 03:30 Magnesium 2.0 mg/dL (1.6-2.3) 11/27/18 04:50 Total Bilirubin 2.1 mg/dL (0.1-1.4) H 11/28/18 06:45 Conjugated Bilirubin 1.8 mg/dL (0.0-0.5) H 11/28/18 06:45 Unconjugated Bilirubin 0.3 mg/dL (0.0-1.1) 11/28/18 06:45 AST 380 IU/L (14-46) H 11/28/18 06:45 ALT 213 IU/L (9-52) H 11/28/18 06:45 Alkaline Phosphatase 68 IU/L (38-126) 11/28/18 06:45 Creatine Kinase 996 IU/L (0-156) H 11/27/18 04:50 CK-MB (CK-2) Fraction 92.90 ng/mL (0.00-4.55) H 11/27/18 04:50 CK-MB (CK-2) % 9.3 % (0.0-4.0) H 11/27/18 04:50 Creatine Kinase Interp POSITIVE (NEGATIVE) H 11/27/18 04:50 POC Troponin I 0.76 ng/mL (0.00-0.08) H 11/25/18 13:09 Troponin I 20.200 ng/mL (0.000-0.034) H 11/29/18 03:30 NT-Pro-B Natriuret Pep 954 pg/mL (0-125) H 11/26/18 05:25 Total Protein 5.1 g/dL (6.3-8.2) L 11/28/18 06:45 Albumin 2.9 g/dL (3.5-5.0) L 11/28/18 06:45 Triglycerides 88 mg/dL (35-135) 11/26/18 05:25 Cholesterol 151 mg/dL (140-220) 11/26/18 05:25 Cholesterol Risk Factr 0.4 (0.2-1.0) 11/26/18 05:25 LDL Cholesterol, Calc 70 mg/dL (80-100) L 11/26/18 05:25 LDL Risk Factor 0.5 (0.2-1.0) 11/26/18 05:25 VLDL Cholesterol 18 mg/dL (8-25) 11/26/18 05:25 Non-HDL Cholesterol 88 mg/dL (90-129) L 11/26/18 05:25 HDL Cholesterol 63 mg/dL (40-85) 11/26/18 05:25 LDL/HDL Ratio 1.12 RATIO (1.00-3.22) 11/26/18 05:25 Cholesterol/HDL Ratio 2.40 RATIO (1.00-4.44) 11/26/18 05:25 Fl Pathologist Review Mer QUINN MD 11/28/18 09:40 Fluid Glucose Cancelled 11/28/18 09:40 Fluid Total Protein Cancelled 11/28/18 09:40 Pericard Source PERICARDIAL 11/28/18 09:40 Pericard Color RED (PALE YELLOW) H 11/28/18 09:40 Pericard Appearance CLOUDY (COLORLESS) H 11/28/18 09:40 Pericard WBC 7056 /mm3 (0-0) H 11/28/18 09:40 Pericard RBC TNP 11/28/18 09:40 Pericard Neutrophils 93 % 11/28/18 09:40 Pericard Lymphocytes 4 % 11/28/18 09:40 Peric Monos/Macrophages 3 % 11/28/18 09:40 Pericard Total Protein 5.2 g/dL 11/28/18 09:40 Pericardial Glucose 99 mg/dL (55-113) 11/28/18 09:40 Cytology RECEIVED 11/28/18 09:40 Patient ABO/Rh A POSITIVE 11/28/18 02:25 Antibody Screen NEGATIVE 11/28/18 02:25 Assessment & Plan Assessment: 73F with pericardial effusion - Femoral arterial line to be placed in ICU - Urgent surgical pericardial window as per Dr. Peralta
[2018-11-29] MEDS ORDERED: ceFAZolin 2 GM/DEXTROSE 100 ML IV ONE ×2 (11:05→15:30)
[2018-11-29] MEDS: COLCHICINE 0.6 MG CAP/TAB PO SCH ×2 (11:13→23:17)
[2018-11-29] MEDS: ENOXAPARIN 40 MG/0.4 ML SYR SC SCH (11:13)
[2018-11-29] MEDS: CLOPIDOGREL BISULFATE 75 MG TAB PO SCH (11:13)
[2018-11-29] MEDS: ASPIRIN 325 MG TAB PO SCH (11:13)
[2018-11-29] MEDS: FAMOTIDINE 20 MG TAB PO SCH (11:14)
[2018-11-29] MEDS: FLUoxetine 20 MG CAP PO SCH (11:14)
[2018-11-29] MEDS ORDERED: AMINOCAPROIC ACID 5 GM/20 ML VIAL IV ONE ×2 (11:35→15:30)
[2018-11-29] MEDS ORDERED: MANNITOL 25% 12.5 GM/50 ML VIAL IVP ONE ×2 (11:35→15:30)
[2018-11-29] MEDS ORDERED: CITRATE DEXTROSE SOLN 500 ML BAG MISC ONE ×2 (11:35→15:30)
[2018-11-29] MEDS ORDERED: CARDIOPLEGIC SOLUTION 1,052.8 ML PF ONE (11:35)
[2018-11-29] MEDS ORDERED: BUPIVACAINE/EPI 0.25% 30 ML SDV ONE (12:24)
[2018-11-29] MEDS ORDERED: PROTAMINE SULFATE 50 MG/5 ML VIAL IVP ONE (12:33)
[2018-11-29] MEDS ORDERED: MILRINONE/DEXTROSE/100 ML BAG IV ONE (12:34)
[2018-11-29] MEDS ORDERED: HEPARIN 10,000 UNIT/10 ML MDV (1,000 UNIT/ML) ONE ×2 (12:34→12:36)
[2018-11-29] MEDS ORDERED: AMINOCAPROIC ACID 5 GM/20 ML VIAL ONE ×2 (12:34→12:35)
[2018-11-29] MEDS ORDERED: DOPamine/DEXTROSE 400 MG/250 ML BAG IV ONE (12:34)
[2018-11-29] MEDS ORDERED: CALCIUM CHLORIDE 1 GM/10 ML INJ ONE ×2 (12:34→12:35)
[2018-11-29] MEDS ORDERED: niCARdipine/NACL/200 ML BAG IV ONE ×2 (12:34→16:53)
[2018-11-29] MEDS ORDERED: NA BICARBONATE 50 MEQ/50 ML VIAL ONE ×5 (12:34→21:12)
[2018-11-29] MEDS ORDERED: AMIODARONE HCL 150 MG/3 ML VIAL ONE ×2 (12:34→12:36)
--- NOTE | 2018-11-29 12:34 | PDANEPAE ---
ANE History of Present Illness 73 yo for pericardial window s/p mi ANE Past Medical History - Cardiovascular History Hx Hypertension: Yes Hx Arrhythmias: No Hx Chest Pain: Yes Hx Coronary Artery / Peripheral Vascular Disease: Yes Hx CHF / Valvular Disease: No Hx Palpitations: No - Pulmonary History Hx Asthma/Reactive Airway Disease: No Hx Recent Upper Respiratory Infection: No Hx Oxygen in Use at Home: No Hx Sleep Apnea: Yes - Endocrine History Hx Diabetes: No - Chronic Pain History Chronic Pain: Yes ANE Review of Systems Review of Systems: - Exercise capacity METS (RN): 3 METS ANE Patient History - Allergies Allergies/Adverse Reactions: codeine Allergy (Verified 11/25/18 13:13) - Home Medications Home medications: home medication list seen and reviewed Home Medications: Lisinopril [Zestril 40 mg (*)] 40 mg PO DAILY 11/25/18 [Last Taken Unknown] FLUoxetine [Prozac 20 MG (*)] 60 mg PO DAILY 11/26/18 [Last Taken Unknown] Methylphenidate HCl [Ritalin 20mg (*)] 20 mg PO BID@06,12 11/26/18 [Last Taken Unknown] Omeprazole 40 mg PO DAILY 11/26/18 [Last Taken Unknown] - NPO status NPO Status: no food or drink >8 hours - Anes Hx Anes Hx: post operative nausea - Smoking Hx Smoking Status: Former smoker - Alcohol Use Alcohol Use: None ANE Labs/Vital Signs - Labs Result Diagrams: 11/29/18 08:20 11/29/18 03:30 - Vital Signs Blood Pressure: 87/72 Heart Rate: 108 Respiratory Rate: 16 O2 Sat (%): 95 Height: 5 ft 6 in Weight: 84.6 kg ANE Physical Exam - Airway Neck exam: FROM Mallampati Score: Class 2 Mouth exam: dentures - Pulmonary Pulmonary: no respiratory distress - Cardiovascular Cardiovascular: regular rate and rhythym - ASA Status ASA Status: IV, E ANE Anesthesia Plan Anesthesia Plan: general endotracheal anesthesia Lines/Monitors: arterial line, central line, AMEYA
[2018-11-29] MEDS ORDERED: SODIUM BICARBONATE 50 MEQ/50 ML SYR ONE ×4 (12:35→20:09)
[2018-11-29] MEDS ORDERED: NITROGLYCERIN/D5W 50 MG/250 ML BOTTLE IV ONE (12:35)
[2018-11-29] MEDS ORDERED: ALBUMIN 5% 250 ML BOTTLE IV ONE (12:35)
[2018-11-29] MEDS ORDERED: ADENOSINE 6 MG/2 ML VIAL ONE (12:35)
[2018-11-29] MEDS ORDERED: ceFAZolin 1 GM VIAL ONE (12:35)
[2018-11-29] MEDS ORDERED: CITRATE DEXTROSE SOLN 500 ML BAG ONE (12:36)
[2018-11-29] MEDS ORDERED: MAGNESIUM SULFATE 1 GM/2 ML VIAL ONE (12:36)
[2018-11-29] MEDS ORDERED: methylPREDNISolone SOD SUCC 1 GM/8 ML VIAL ONE (12:36)
[2018-11-29] MEDS ORDERED: LIDOCAINE 2% 100 MG/5 ML SYR ONE (12:36)
[2018-11-29] MEDS ORDERED: fentaNYL 100 MCG/2 ML INJ ONE ×2 (12:43→13:23)
[2018-11-29] MEDS ORDERED: PROPOFOL/EMULSION 500 MG/50 ML BOTTLE IV ONE (12:44)
[2018-11-29] MEDS ORDERED: ROCURONIUM 100 MG/10 ML VIAL ONE (12:44)
[2018-11-29] MEDS ORDERED: NOREPINEPHRINE BITARTRATE 4 MG in NS 500 ML IV SCH (14:30)
[2018-11-29] MEDS ORDERED: METOCLOPRAMIDE 10 MG/2 ML VIAL IVP PRN (14:31)
[2018-11-29] MEDS ORDERED: POLYETHYLENE GLYCOL 3350 17 GM PKT PO PRN (14:31)
[2018-11-29] MEDS ORDERED: SODIUM CL NASAL 45 ML BTL EACHNARE PRN (14:31)
[2018-11-29] MEDS ORDERED: ALBUMIN 5% 250 ML IV PRN (14:31)
[2018-11-29] MEDS ORDERED: ACETAMINOPHEN 650 MG SUPP PR PRN (14:31)
[2018-11-29] MEDS ORDERED: BISACODYL 10 MG SUPP PR PRN (14:31)
--- NOTE | 2018-11-29 14:50 | HOSPPROG ---
Hospitalist Progress Note Assessment/Plan: #Post infarction pericardial tamponade/effusion: recurrent chest pain overnight. Hypotensive overnight, repeat echo showing recurrent tamponade physiology. -Dr. Peralta to perform pericardial window #STEMI: LCx occlusion with dissection, not amendable to stenting #JAQUAN: due to hypotension #Hypotension: Levophed; wean as tolerated #Pericarditis: colchicine #Metabolic encephalopathy: improved with Narcan. Avoid these meds #Chronic pain: no longer on opioids outpatient #Diet: cardiac #DVT ppx: SCDs Inpatient admission for tamponade, surgical intervention Subjective: recurrent chest pain, hypotension. "feel like elephant on chest" Objective: Vital Signs Temp Pulse Resp BP Pulse Ox 36.3 C 108 H 16 87/72 L 95 11/29/18 10:00 11/29/18 12:34 11/29/18 12:34 11/29/18 12:34 11/29/18 12:34 Microbiology 11/28/18 09:40 Gram Stain - Final Pericardial Fluid - Aspirate 11/28/18 09:40 Mycobacterial Smear (MARTHA) - Final Pericardial Fluid - Aspirate Laboratory Results 11/29/18 08:20 11/29/18 03:30 11/28/18 11/29/18 11/30/18 05:59 05:59 05:59 Intake Total 1507 4188.1 Output Total 350 720 215 Balance 1157 3468.1 -215 PT 13.1 SEC (12.0-15.0) 11/26/18 05:25 INR 1.03 (0.83-1.16) 11/26/18 05:25 - Time Spent With Patient Time Spent with Patient: greater than 35 minutes Time Spent with Patient: Greater than 35 minutes spent on this patients care, greater than 50% of time spent counseling, educating, and coordinating care regarding the above mentioned plan. ICD10 Worksheet Patient Problems: Problems Problem Status Onset Pericardial effusion with cardiac tamponade Acute Post-infarction pericarditis Acute S/P pericardial window creation Acute ~11/29/18 STEMI (ST elevation myocardial infarction) Acute
[2018-11-29] MEDS ORDERED: PROPOFOL 200 MG/20 ML VIAL ONE ×2 (15:07→15:41)
[2018-11-29] MEDS ORDERED: fentaNYL 250 MCG/5 ML INJ ONE (15:11)
[2018-11-29] MEDS ORDERED: SODIUM BICARBONATE 50 MEQ/50 ML SYR IV ONE (15:15)
[2018-11-29] MEDS ORDERED: INSULIN REGULAR HUMAN 100 UNIT in NS 100 ML IV ONE ×2 (15:30→18:45)
[2018-11-29] MEDS ORDERED: PHENYLEPHRINE HCL 50 MG in NS 250 ML IV ONE (15:30)
[2018-11-29] MEDS ORDERED: LIDOCAINE 1% 5 ML SDV ID PRN (15:30)
[2018-11-29] MEDS ORDERED: SODIUM BICARBONATE 20 MEQ, LIDOCAINE 1% 10 ML in NORMOSOL-R 1,000 ML MISC ONE (15:30)
[2018-11-29] MEDS ORDERED: NS 1,000 ML IV ONE (15:30)
[2018-11-29] MEDS ORDERED: CARDIOPLEGIA DEL NIDO SOLN 1,052.8 ML PF ONE (15:30)
[2018-11-29] MEDS ORDERED: NOREPINEPHRINE BITARTRATE 16 MG in NS 250 ML IV ONE (15:30)
[2018-11-29] MEDS ORDERED: FIBRINOGEN/THROMBIN(HUMAN) 9.5 CM X 4.8 CM PATCH (TACHOSIL) TP ONE (15:35)
--- NOTE | 2018-11-29 15:44 | PDANEPAE ---
ANE History of Present Illness 73 yo to OR emergently s/p pericardial window w/ hemodynamic instability ANE Past Medical History - Cardiovascular History Hx Hypertension: Yes Hx Arrhythmias: No Hx Chest Pain: Yes Hx Coronary Artery / Peripheral Vascular Disease: Yes Hx CHF / Valvular Disease: No Hx Palpitations: No - Pulmonary History Hx Asthma/Reactive Airway Disease: No Hx Recent Upper Respiratory Infection: No Hx Oxygen in Use at Home: No Hx Sleep Apnea: Yes - Endocrine History Hx Diabetes: No - Chronic Pain History Chronic Pain: Yes ANE Review of Systems Review of Systems: - Exercise capacity METS (RN): 3 METS ANE Patient History - Allergies Allergies/Adverse Reactions: codeine Allergy (Verified 11/25/18 13:13) - Home Medications Home Medications: Lisinopril [Zestril 40 mg (*)] 40 mg PO DAILY 11/25/18 [Last Taken Unknown] FLUoxetine [Prozac 20 MG (*)] 60 mg PO DAILY 11/26/18 [Last Taken Unknown] Methylphenidate HCl [Ritalin 20mg (*)] 20 mg PO BID@06,12 11/26/18 [Last Taken Unknown] Omeprazole 40 mg PO DAILY 11/26/18 [Last Taken Unknown] - Smoking Hx Smoking Status: Former smoker - Alcohol Use Alcohol Use: None ANE Labs/Vital Signs - Labs Result Diagrams: 11/29/18 08:20 11/29/18 03:30 - Vital Signs Blood Pressure: 87/72 Heart Rate: 108 Respiratory Rate: 16 O2 Sat (%): 95 Height: 5 ft 6 in Weight: 84.6 kg ANE Physical Exam - Airway Mouth exam: ETT in situ - ASA Status ASA Status: IV, E ANE Anesthesia Plan Anesthesia Plan: general endotracheal anesthesia Urgent/Emergent Case: Jacob schmidt completed preop but documented later for safe timely pt care
[2018-11-29] MEDS ORDERED: CEPACOL LOZENGE PO PRN (16:19)
[2018-11-29] MEDS ORDERED: PANTOPRAZOLE SODIUM 40 MG VIAL IVP ONE (16:19)
[2018-11-29] MEDS ORDERED: D50W 25 GM/50 ML SYR IVP PRN (16:19)
[2018-11-29] MEDS ORDERED: INSULIN REGULAR HUMAN 100 UNIT in NS 100 ML IV SCH (16:30)
--- NOTE | 2018-11-29 16:44 | GOP ---
[f rep st] OPERATIVE REPORT DATE OF OPERATION: 11/29/2018 SURGEON: Juan Peralta DO HEEL SANDER RUBBER: Peter. ANESTHESIOLOGIST: Dr. Jefferson. PREOPERATIVE DIAGNOSIS: Hemopericardium status post acute myocardial infarction with percutaneous co ronary intervention. POSTOPERATIVE DIAGNOSIS: Hemopericardium status post acute myocardial infarction with percutaneous c oronary intervention. PROCEDURE PERFORMED: Subxiphoid pericardiotomy with evacuation of clot with irrigation. FINDINGS: DESCRIPTION OF PROCEDURE: Patient was hemodynamically unstable on Levophed, brought to the operating room after previous PCI for an occluded circumflex which was felt to be due to dissection of the cor onary. It was a complicated procedure, and they were unable to open the vessel. She then developed a pericardial effusion which was drained percutaneously. On repeat echo this morning after she becam e more unstable, it was apparent that she had laminated thrombus within the pericardium and tamponade physiology. She was consented for surgery and brought to the operating room, intubated, monitoring lines were placed. An incision over the xiphoid process was performed. It should be noted that this patient is morbidly obese. We then excised the xiphoid process, grasped the pericardium and opened it. There was approximately 200 cc of clot evacuated with the sucker. It was quite difficult due to a small pericardium and morbid obesity. We then irrigated and watched it for some time to make sure we did not create any bleeding situation. There was also a small concern that she could have a late ral wall contained rupture of her myocardium with the infarct, although that that was extremely unlik rigo. No further blood was noted to come from that area despite aggressive irrigation and finger diss ection around the pericardium and sucker dissection around the pericardium as well circumferentially. I then placed a single drain and closed the wound. There was no drainage except for a small amount of serous fluid from the irrigation that came back into the drain. We then transferred the patient to the ICU in stable condition. /[id number]/MODL
--- NOTE | 2018-11-29 16:48 | PDINTPN ---
Bid Writer Progress Note Assessment/Plan: Assessment: Status post myocardial infarction. This was associated probably to a distal circumflex arterial dissection. Could not be stented or ballooned. Returned to the ICU to complete the her infarct. Troponin peaked, came down, then bumped up again with pericardial effusion/tamponade. No arrhythmias. Ejection fraction overall was normal on catheterization, and on echo today estimated left ventricular ejection fraction is approximately 60%. Pericardial tamponade: With hypotension, bradycardia 4/2 a.m. Improved with pericardial drain, but then decompensated. Taken to the OR today for pericardial window, then had hypotension and immediately returned to the operating room for further evacuation of clot. Additionally, bilateral pleural effusions were drained. Chronic right shoulder pain, has a Tens unit. Anemia: Hemoglobin 8.5 in the operating room. Has just received 1 unit packed red blood cells. Bilateral pleural effusions: Drained in the operating room today Prophylaxis: On enoxaparin and famotidine. History ADD: On Ritalin. Currently on hold secondary to potential cardio stimulation. History of hypertension. Her home lisinopril is on hold. Plan: Continue care in the intensive care unit. Extubate per protocol. Continue hemodynamic monitoring. Monitor drain output. Continue pain control.Continue IV fluids. Follow H/H 11/29/18 16:49 Subjective: Intubated, sedated Objective: Vital Signs Temp Pulse Resp BP Pulse Ox 36.3 C 108 H 16 87/72 L 95 11/29/18 10:00 11/29/18 15:44 11/29/18 15:44 11/29/18 15:44 11/29/18 15:44 Microbiology 11/28/18 09:40 Gram Stain - Final Pericardial Fluid - Aspirate 11/28/18 09:40 Mycobacterial Smear (MARTHA) - Final Pericardial Fluid - Aspirate Laboratory Results 11/29/18 08:20 11/29/18 03:30 11/28/18 11/29/18 11/30/18 05:59 05:59 05:59 Intake Total 1507 4188.1 Output Total 350 720 215 Balance 1157 3468.1 -215 PT 13.1 SEC (12.0-15.0) 11/26/18 05:25 INR 1.03 (0.83-1.16) 11/26/18 05:25 Chest x-ray: Decreased pleural effusions. Images reviewed by me. Physical Exam - Physical Exam General Appearance: unresponsive EENT: normal ENT inspection, ET tube Neck: normal inspection Respiratory: lungs clear, normal breath sounds Cardiac/Chest: regular rate, rhythm, No edema Abdomen: normal bowel sounds, non-tender, soft Skin: normal color, warm/dry Extremities: normal inspection Neuro/Psych: No alert ICD10 Worksheet Patient Problems: Problems Problem Status Onset Bilateral pleural effusion Acute Pericardial effusion with cardiac tamponade Acute Post-infarction pericarditis Acute S/P pericardial window creation Acute ~11/29/18 STEMI (ST elevation myocardial infarction) Acute
--- NOTE | 2018-11-29 16:49 | GOP ---
[f rep st] OPERATIVE REPORT DATE OF OPERATION: 11/29/2018 SURGEON: Juan Peralta DO PREOPERATIVE DIAGNOSIS: Persistent tamponade physiology with evidence of recurrent bleeding, status post pericardial window. POSTOPERATIVE DIAGNOSIS: PROCEDURE PERFORMED: Sternotomy with evacuation of hematoma and clot. FINDINGS: DESCRIPTION OF PROCEDURE: The patient had undergone a pericardial window and had no evidence of ongo ing bleeding at the time of the exploration. A large 24-Ethiopian drain had been placed and no draining drainage was noted prior to transfer. Upon arrival to the ICU, however, she became hemodynamically unstable and it became evident that there was new sanguinous drainage from the Daniele drain. For that reason, she was taken immediately back to the operating room. A sternotomy was performed. We then evacuated several 100 cc of fresh clot and old clot from the posterior pericardium as best we could. We explored the lateral wall and found no evidence of rupture. There was densely adherent clot to t he lateral wall, which appeared to be old. Again, we peeled all that off and found no evidence of ru pture. There was no evidence of bleeding from the PCI site or from the recent surgical site. We the n opened both pleura and drained 1.6 L of serous fluid in total from both pleura. Drains were placed . The pericardium and thymic fat were closed. V wires were placed. The sternum was closed in stand marleen fashion. Patient was returned to ICU in stable condition. /[id number]/MODL
[2018-11-29] MEDS ORDERED: ALBUMIN 5% 500 ML BOTTLE IV ONE ×2 (17:58→20:08)
[2018-11-29] MEDS ORDERED: EPINEPHrine 1 MG/10 ML SYR IVP ONE (18:00)
[2018-11-29] MEDS ORDERED: NALOXONE HCL 2 MG/2 ML SYR IVP ONE (18:00)
[2018-11-29] MEDS ORDERED: EPINEPHrine 8 MG in NS 250 ML IV SCH (18:30)
[2018-11-29] MEDS ORDERED: NOREPINEPHRINE BITARTRATE 16 MG in NS 250 ML IV SCH (18:30)
--- NOTE | 2018-11-29 18:54 | PDCTREPORT ---
Cardiothoracic Procedure Rpt Cardiothoracic Procedure Report: Left femoral arterial line placed under sterile conditions via Seldinger technique. 5 mL of 2% Lidocaine used for topical anesthesia. Line functioning well. No complications noted. Patient Problems: Problems Problem Status Onset Bilateral pleural effusion Acute Pericardial effusion with cardiac tamponade Acute Post-infarction pericarditis Acute S/P pericardial window creation Acute ~11/29/18 STEMI (ST elevation myocardial infarction) Acute
--- NOTE | 2018-11-29 19:33 | PDCODEBLUE ---
Code Blue Note Code blue was called and I reported to the ICU. I recently saw this patient in the emergency department after she had a SCAD. Patient went to surgery and had a total of three surgeries after developing a pericardiac tamponade. Patient had a pericardiocentesis. She also had pericardiac window surgery today. Upon my arrival to the patient's room the patient had just received a 1/2 amp of Epinephrine and CPR was started.She is not on an Epinephrine drip 1742: Patient has a carotid pulse, CPR stopped. There is concern for pericardial tamponade post-op 1745: Patient has a good femoral pulse. There is no need for a pericardiocentesis. Patient is overbreathing the vent. Additional 1mg IV Epinephrine. 1746: Patient lost pulses; resume CPR. 1748: Patient has no femoral pulse; we will continue CPR. 1749: Hold CPR; patient has no pulse on her arterial line or femoral. CPR continued. 1750: Bedside FAST Cardiac US reveals minor cardiac activity, no effusion. Additional amp of Epi administered. 1751: Patient has no pulse, resume CPR. Dr. Peralta, cardiothoracic surgeon is in the room now. 1754: As Dr. Castro, trauma surgeon, and Dr. Peralta are in the room I have left to go back to the ER.
[2018-11-29] MEDS ORDERED: NALOXONE HCL 0.4 MG/ML INJ ONE (20:08)
[2018-11-29] MEDS ORDERED: NALOXONE HCL 0.4 MG/ML INJ IVP ONE (20:15)
[2018-11-29] MEDS ORDERED: SODIUM BICARBONATE 50 MEQ/50 ML SYR IVP ONE (20:15)
[2018-11-29] MEDS: DEXMEDETOMIDINE HCL 400 MCG in NS 100 ML IV SCH (20:30)
[2018-11-29] MEDS ORDERED: ALBUMIN 5% 500 ML IV ONE (20:30)
[2018-11-29] MEDS ORDERED: CHLORHEXIDINE GLUC HIBICLENS 118 ML BTL TP SCH (21:00)
[2018-11-29] MEDS: POTASSIUM Cl (KCl) 50 ML IV PRN (21:26)
[2018-11-29] MEDS ORDERED: SODIUM BICARBONATE 150 MEQ in D5W 1,000 ML IV SCH (21:30)
[2018-11-29] MEDS ORDERED: NA BICARBONATE 50 MEQ/50 ML VIAL IV ONE (21:30)
[2018-11-29] MEDS: ceFAZolin 2 GM/DEXTROSE 100 ML IV SCH (22:15)
[2018-11-29 22:20] LABS: INR 2.39 (0.83-1.16); PROTIME(PATIENT) 24.9 SEC (12.0-15.0)
[2018-11-29] MEDS ORDERED: CALCIUM CHLORIDE 1 GM/10 ML INJ IV ONE (22:30)
[2018-11-29] MEDS: MUPIROCIN 2% 22 GM OINT NS SCH (23:18)
[2018-11-30] MEDS ORDERED: NA BICARBONATE 50 MEQ/50 ML VIAL ONE (00:14)
[2018-11-30] MEDS ORDERED: FUROSEMIDE 20 MG/2 ML VIAL IV ONE (00:45)
[2018-11-30] MEDS ORDERED: AMIODARONE A.FIB-LOAD DOSE(ORDER 1/3) PREMIX IV ONE (01:00)
[2018-11-30] MEDS ORDERED: AMIODARONE A.FIB-6HR INFSN (ORDER 2/3) PREMIX IV ONE (01:00)
[2018-11-30] MEDS: POTASSIUM Cl (KCl) 50 ML IV PRN (04:08)
[2018-11-30] MEDS: ceFAZolin 2 GM/DEXTROSE 100 ML IV SCH ×3 (05:10→21:33)
[2018-11-30 05:45] LABS: PLATELET COUNT 91 10^3/uL (150-400)
[2018-11-30 05:54] LABS: INR 1.62 (0.83-1.16); PROTIME(PATIENT) 18.5 SEC (12.0-15.0)
--- NOTE | 2018-11-30 06:49 | SOAPPROG ---
SOAP Progress Note Assessment/Plan: POD #1: subxiphoid pericardotomy/sternotomy with evacuation of clot/hematoma POD #2: percutaneous pericardiocentesis Post-infarction sanguinous pericardial effusion with tamponade s/p subxiphoid pericardotomy/sternotomy - Possible bleeding into left chest likely from chest compressions - will place left chest tube later today with possible washout in OR - Continue CTs to suction, FC to gravity, left femoral AL Cardiogenic shock with metabolic acidosis secondary to blood loss s/p code requiring chest compressions - Wean dopamine as tolerated - Bicarb drip stopped as acidosis reversed - Will transfuse as needed Ventilator dependent respiratory failure - FiO2 80 % - Wean vent as tolerated Acute blood loss anemia with coagulopathy - s/p multiple transfusions with a continual drop in H/H - Will transfuse as needed STEMI with distal circumflex occlusion likely secondary to spontaneous coronary artery dissection not amendable to PCI - Mgmt as per cardiology once stabilized Acute Class IV CHF, mixed diastolic/systolic with BL pleural effusions - HF mgmt when appropriate Paroxysmal atrial fibrillation - Conversion to SR with amiodarone - [id number] - will consider thromboprophylaxis when appropriate Acute kidney injury secondary to hypoperfusion - Cr 1.3, slowly trending higher - Avoid nephrotoxins, continue supportive care, monitor DVT prophylaxis - SCDs Disposition - ICU, critical Subjective: Sedated on vent Objective: Vital Signs Temp Pulse Resp BP Pulse Ox 36.6 C 10 L 19 110/58 L 95 11/30/18 04:00 11/30/18 06:00 11/30/18 06:00 11/30/18 06:00 11/30/18 06:00 Microbiology 11/28/18 09:40 Gram Stain - Final Pericardial Fluid - Aspirate Laboratory Results 11/30/18 05:30 11/30/18 05:30 11/29/18 11/30/18 12/01/18 05:59 05:59 05:59 Intake Total 4188.1 5763 Output Total 720 2995 Balance 3468.1 2768 PT 18.5 SEC (12.0-15.0) H 11/30/18 05:30 INR 1.62 (0.83-1.16) H 11/30/18 05:30 Physical Exam - Physical Exam General Appearance: unresponsive, obese EENT: No scleral icterus (R), No scleral icterus (L) Neck: normal inspection Respiratory: No respiratory distress Cardiac/Chest: regular rate, rhythm Abdomen: non-tender, soft, No distended Skin: normal color, warm/dry Extremities: pedal edema Neuro/Psych: other (sedated ) ICD10 Worksheet Patient Problems: Problems Problem Status Onset Bilateral pleural effusion Acute Pericardial effusion with cardiac tamponade Acute Post-infarction pericarditis Acute S/P pericardial window creation Acute ~11/29/18 STEMI (ST elevation myocardial infarction) Acute
[2018-11-30] MEDS ORDERED: AMIODARONE A.FIB-18HR INFSN (ORDER 3/3) IV ONE (07:00)
[2018-11-30] MEDS ORDERED: LIDOCAINE 1% 300 MG/30 ML SDV ONE (07:44)
[2018-11-30] MEDS ORDERED: FUROSEMIDE 20 MG/2 ML VIAL IVP ONE (08:15)
[2018-11-30] MEDS ORDERED: POVIDONE-IODINE 30 ML STERILE SOLUTION IRR ONE (09:00)
--- NOTE | 2018-11-30 09:48 | PDINTPN ---
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 This was associated probably to a distal circumflex arterial dissection. Could not be stented or ballooned. Returned to the ICU to complete the her infarct. Troponin peaked, came down, then bumped up again with pericardial effusion/tamponade. No arrhythmias. Ejection fraction overall was normal on catheterization, and on echo today estimated left ventricular ejection fraction is approximately 60%. Pericardial tamponade: With hypotension, bradycardia / a.m. Improved with pericardial drain, but then decompensated. Taken to the OR 11/28 afternoon for pericardial window, then had hypotension and immediately returned to the operating room for further evacuation of clot. Additionally, bilateral pleural effusions were drained. S/P PEA arrest following sternotomy/open pericardial drainage and bilateral pleural drainage 11/29 PM: Hgb fell 4 points, PEA likely due to hypovolemia from hemorrhage. Responded to CPR, fluids/HCO3, PRBCs. Has received a total of 4 PRBCs, 2 FFP, 1 cryo. Remains on DA. Atrial Fibrillation: Developed 11/30 AM. Now NSR on amio drip. Anemia: Hemoglobin 8.5 in the operating room. Has just received 1 unit packed red blood cells. Respiratory Failure: On vent with good sats and CO2/pH, requiring 80% oxygen, airway pressures adequate. Hypernatremia: Since arrest. Likely due to Na HCO3. Hypokalemia: Mild. Coagulopathy: Partially corrected with FFP, cryo Bilateral pleural effusions: Drained in the operating room 11/29. CXR shows recurrence, likely blood. Chronic right shoulder pain, has a Tens unit. Prophylaxis: On enoxaparin and famotidine. History ADD: On Ritalin. Currently on hold secondary to potential cardio stimulation. History of hypertension. Her home lisinopril is on hold. Plan: Continue care in the intensive care unit. Continue hemodynamic monitoring, amio. Wean DA as tolerated. Probably place a chest tube today to drain/blood. Continue pain control. Continue IV fluids. Replace K+. Follow H/H, K+, Na 40min CC time managing hypotension, anemia/bleeding, respiratory failure 11/30/18 11:06 Subjective: Intubated, sedated Objective: Vital Signs Temp Pulse Resp BP Pulse Ox 36.6 C 81 18 113/55 L 93 11/30/18 07:00 11/30/18 09:00 11/30/18 09:00 11/30/18 09:00 11/30/18 09:00 Microbiology 11/28/18 09:40 Gram Stain - Final Pericardial Fluid - Aspirate Laboratory Results 11/30/18 05:30 11/30/18 05:30 11/29/18 11/30/18 12/01/18 05:59 05:59 05:59 Intake Total 4188.1 5763 Output Total 720 2995 175 Balance 3468.1 2768 -175 PT 18.5 SEC (12.0-15.0) H 11/30/18 05:30 INR 1.62 (0.83-1.16) H 11/30/18 05:30 Chest x-ray: Increased layering effusion on the left. Persistent left basilar consolidation. Images reviewed by me. Laboratory Tests 11/29/18 21:10 POC ABG pH 7.38 POC ABG pCO2 27 L POC ABG pO2 107 H POC ABG HCO3 16 L POC ABG Total CO2 17 L POC ABG O2 Sat 98 H Laboratory Tests 11/29/18 11/30/18 21:55 05:30 INR 2.39 H 1.62 H Physical Exam - Physical Exam General Appearance: alert, no apparent distress EENT: normal ENT inspection Neck: normal inspection Respiratory: lungs clear, normal breath sounds Cardiac/Chest: regular rate, rhythm, No edema Abdomen: normal bowel sounds, non-tender Skin: warm/dry Extremities: non-tender, normal inspection Neuro/Psych: other (Moves all extremities spontaneously), No alert, No normal mood/affect, No oriented x 3 ICD10 Worksheet Patient Problems: Problems Problem Status Onset Bilateral pleural effusion Acute Pericardial effusion with cardiac tamponade Acute Post-infarction pericarditis Acute S/P pericardial window creation Acute ~11/29/18 STEMI (ST elevation myocardial infarction) Acute
[2018-11-30] MEDS: FLUoxetine 20 MG CAP PO SCH (10:27)
[2018-11-30] MEDS: COLCHICINE 0.6 MG CAP/TAB PO SCH ×2 (10:27→20:58)
[2018-11-30] MEDS: ASPIRIN 325 MG TAB PO SCH (10:27)
[2018-11-30] MEDS: FAMOTIDINE 20 MG TAB PO SCH (10:27)
[2018-11-30] MEDS ORDERED: MIDAZOLAM 2 MG/2 ML VIAL ONE (10:53)
[2018-11-30] MEDS ORDERED: MIDAZOLAM 2 MG/2 ML VIAL IVP ONE (11:15)
[2018-11-30] MEDS: POTASSIUM Cl (KCl) 100 ML IV SCH ×2 (11:39→12:50)
[2018-11-30] MEDS: CLOPIDOGREL BISULFATE 75 MG TAB PO SCH (11:43)
[2018-11-30] MEDS ORDERED: PROTOCOL POTASSIUM 1 DOSE MISC PRN (11:44)
--- NOTE | 2018-11-30 11:47 | ASMTCMCOM ---
CM Note CM Note Notes: Patient is POD #1 pericardotomy/sternotomy and POD #2 pericardiocentesis. A Code Harshal was called last night; she is currently intubated/sedated. Patient's daughter Dinorah (whom she lives with) and son Rony and ONUR are at bedside. Discharge needs TBD. Case Management will follow Date Signed: 11/30/2018 11:46 AM Electronically Signed By:Falguni Alberto RN
--- NOTE | 2018-11-30 12:51 | GOP ---
[f rep st] OPERATIVE REPORT DATE OF OPERATION: 11/30/2018 SURGEON: Juan Peralta DO PREOPERATIVE DIAGNOSIS: Left hemothorax. POSTOPERATIVE DIAGNOSIS: Left hemothorax. PROCEDURE PERFORMED: 32-Djiboutian chest tube on the left. FINDINGS: DESCRIPTION OF PROCEDURE: Patient was intubated, was sedated. The area was prepped and draped in st erile classical manner. An incision was placed. A tonsil was placed through the intercostal space. A finger was entered to make sure there were no adhesions. We then placed a 32-Djiboutian chest tube in the left pleura without difficulty and sutured in place and connected to a Pleur-Evac. /[id number]/MODL
[2018-11-30] MEDS: MUPIROCIN 2% 22 GM OINT NS SCH ×2 (14:14→21:30)
--- NOTE | 2018-11-30 15:07 | HOSPPROG ---
Hospitalist Progress Note Assessment/Plan: #Post infarction pericardial tamponade/effusion: drain initially placed, but required pericardial window that was complicated by ongoing blees -s/p subxiphoid pericardotomy/sternotomy for clot evacuation #Left hemithorax: chest tube placed #Atrial fibrillation: converted to NSR with amiodarone #PEA arrest: s/p post-sternotomy, in setting of acidosis #ABLA: due to above. Transfuse PRN. H/H, 04/22 #Acute hypoxemic resp failure: BL effusions drain, left CT in place. Intubated #STEMI: LCx occlusion with dissection, not amendable to stenting #JAQUAN: due to hypotension #Cardiogenic shock: wean dopamine as tolerated #Hyperglycemia: off insulin gtt, SSI, check A1c #Metabolic encephalopathy: improved with Narcan. Avoid these meds #Chronic pain: no longer on opioids outpatient #Diet: cardiac #DVT ppx: SCDs Inpatient admission for tamponade, surgical intervention Subjective: chest tube placed this morning Objective: Vital Signs Temp Pulse Resp BP Pulse Ox 36.6 C 78 12 124/51 H 95 11/30/18 14:00 11/30/18 14:00 11/30/18 14:00 11/30/18 14:00 11/30/18 14:00 Microbiology 11/28/18 09:40 Gram Stain - Final Pericardial Fluid - Aspirate Laboratory Results 11/30/18 05:30 11/30/18 05:30 11/29/18 11/30/18 12/01/18 05:59 05:59 05:59 Intake Total 4188.1 5763 Output Total 720 2995 1200 Balance 3468.1 2768 -1200 PT 18.5 SEC (12.0-15.0) H 11/30/18 05:30 INR 1.62 (0.83-1.16) H 11/30/18 05:30 - Time Spent With Patient Time Spent with Patient: greater than 35 minutes Time Spent with Patient: Greater than 35 minutes spent on this patients care, greater than 50% of time spent counseling, educating, and coordinating care regarding the above mentioned plan. - Physical Exam Ears, Nose, Mouth, Throat: other (intubated) Cardiovascular: regular rate and rhythym, other (substernal incision, mediastinal drains. Left chest tube) Respiratory: other (left chest tube) Genitourinary: rosenthal in urethra Skin: warm Psychiatric: encephalopathic ICD10 Worksheet Patient Problems: Problems Problem Status Onset Bilateral pleural effusion Acute Pericardial effusion with cardiac tamponade Acute Post-infarction pericarditis Acute S/P pericardial window creation Acute ~11/29/18 STEMI (ST elevation myocardial infarction) Acute
[2018-11-30] MEDS ORDERED: D50W 25 GM/50 ML SYR IVP PRN (15:17)
[2018-11-30] MEDS ORDERED: FUROSEMIDE 40 MG/4 ML VIAL IVP ONE ×2 (16:32→18:45)
[2018-11-30] MEDS: INSULIN LISPRO 100 UNIT/ML SC SCH (19:14)
[2018-11-30] MEDS ORDERED: POTASSIUM Cl (KCl) 50 ML IV ONE (22:24)
[2018-11-30] MEDS: DEXMEDETOMIDINE HCL 400 MCG in NS 100 ML IV SCH (23:09)
[2018-12-01] MEDS ORDERED: AMIODARONE HCL 200 ML IV SCH (01:00)
[2018-12-01] MEDS ORDERED: POTASSIUM Cl (KCl) 50 ML IV ONE (02:20)
[2018-12-01] MEDS: DEXMEDETOMIDINE HCL 400 MCG in NS 100 ML IV SCH (03:23)
[2018-12-01] MEDS: ceFAZolin 2 GM/DEXTROSE 100 ML IV SCH (06:23)
--- NOTE | 2018-12-01 07:07 | SOAPPROG ---
SOAP Progress Note Assessment/Plan: Assessment: POD#2 subxiphoid pericardial window converted to median sternotomy for evac hematoma and bilat pleural effusions POD#3 percutaneous pericardiocentesis by cards Post-infarction/PCI hemopericardium with tamponade - Initially managed with percutaneous drain. Taken to surgery for inability to wean pressor support with evidence of retained thrombus by echo. Recurrent instability after pericardial window and more definitive washout and exploration undertaken with full sternotomy. No evidence of ventricular rupture or ritesh perf. Acute inferolateral STEMI w preserved LV systolic fx - Assoc with distal circumflex occlusion/dissection. Attempted PCI unsuccessful. Course compl by CHF , postinfarction pericarditis, pleuropericardial effusions, pericardial tamponade and EMD arrest. 2nd left sided chest tube placed for moderate sized effusion not in communication with more superiorly angled denis tube. Secondary prevention with standard cardioprotective meds when appropriate. Cardiogenic shock with metabolic acidosis - following PEA/EMD arrest exacerbated by blood loss. ROSC achieved with CPR, HCO3, IVF/PRBCs, narcan and pressor support. Remains on dopamine. Ventilator dependent respiratory failure - Stable. Steady reduction in FiO2. Vent wean per pulm. Extubation anticipated later today. Acute blood loss anemia with coagulopathy - Corrected with multiple transfusions. No evidence ongoing blood loss. VTE prophylaxis with SCDs. Paroxysmal atrial fibrillation - Conversion to SR with amiodarone. [id number] 5. Antithrombotic prophylaxis when appropriate. Acute kidney injury - Secondary to hypoperfusion. Peak Cr 1.4. Avoid nephrotoxins. Continue supportive care. Plan: Cont supportive care as per multidisciplinary team. Convert denis drains to bulb suction. Consider removal nonfunctional TCPWs. Strict NPO after extubation, pending clearance for orals by PHARMACY INTAKE TECHNICIAN 12/01/18 07:05 Subjective: Lightly sedated. Motioning for ETT removal. Objective: Vital Signs Temp Pulse Resp BP Pulse Ox 37.2 C 69 14 127/64 H 94 12/01/18 06:00 12/01/18 06:00 12/01/18 06:00 12/01/18 06:00 12/01/18 06:00 Microbiology 11/28/18 09:40 Gram Stain - Final Pericardial Fluid - Aspirate Laboratory Results 12/01/18 05:30 12/01/18 05:30 11/30/18 12/01/18 12/02/18 05:59 05:59 05:59 Intake Total 5763 1492 Output Total 2995 3170 Balance 2768 -1678 PT 18.5 SEC (12.0-15.0) H 11/30/18 05:30 INR 1.62 (0.83-1.16) H 11/30/18 05:30 Physical Exam - Physical Exam General Appearance: no apparent distress Respiratory: lungs clear (grossly), other (left CT to pleurovac, serosang drainage, no air leak; central blakes x 3 y-d to pleurovac, serosang drainage, no air leak) Cardiac/Chest: regular rate, rhythm, other (Sternotomy CDI. Vwires intact) Abdomen: non-tender, soft Skin: warm/dry Extremities: swelling (1+ gen) ICD10 Worksheet Patient Problems: Problems Problem Status Onset Bilateral pleural effusion Acute Pericardial effusion with cardiac tamponade Acute Post-infarction pericarditis Acute S/P pericardial window creation Acute ~11/29/18 STEMI (ST elevation myocardial infarction) Acute
[2018-12-01] MEDS: INSULIN LISPRO 100 UNIT/ML SC SCH (08:25)
[2018-12-01] MEDS ORDERED: SENNOSIDES/DOCUSATE SODIUM TAB PO SCH (09:00)
--- NOTE | 2018-12-01 09:30 | ECHO ---
[email or web address] [email or web address] [id number] Main: [phone] Echocardiography Examination Transthoracic Name: CLARIBEL NEGRON MR#: [id number] Study Date: 11/28/2018 Study Time: Date of : 1945 Age: 73 year(s) Height: ( ) Weight: ( ) BSA: Gender: Female Examination: Limited Echo Contrast: Image Quality: Adequate Rhythm: Heart Rate: BP: / Indication: Pericardiocentesis Procedure Staff Referring Physician: Creative Technologist: Ai Brenner [facility] Reading Physician: Raza Mooney MD Requesting Provider: Indication: Pericardiocentesis Conclusions Pre pericardiocentesis with evidence of tamponade physiology noted. According to nutrition technician, 240 cc of fluid were removed from the pericardial space with improved haemodyamics noted. Decrease in the pericardial fluid was noted over the series of images obtained with this study. Findings Pericardium: 240 cc were successfully removed from the pericardial space. No evidence of tamponade. Exam Details Procedure Ordered: Limited Echo Procedure Status: Routine study Image Quality: Adequate Facility Location: Cardiac Echo 1 (No Signature Object) Patient: CLARIBEL NEGRON Study Date: 11/28/2018 Page 1 of 1 [id number]
--- NOTE | 2018-12-01 09:50 | CPEKG ---
Test Reason : OPEN Blood Pressure : / mmHG Vent. Rate : 078 BPM Atrial Rate : 077 BPM P-R Int : 194 ms QRS Dur : 109 ms QT Int : 413 ms P-R-T Axes : 101 017 061 degrees QTc Int : [address] elevation inferior-lateral, consider acute Anterolateral infart. Confirmed by Christopher Cowan ([id number]) on 12/01/2018 9:49:39 AM Referred By: Juan Plasencia Confirmed By:Christopher Cowan
[2018-12-01] MEDS ORDERED: FAMOTIDINE 20 MG/NACL 50 ML IV SCH (10:00)
--- NOTE | 2018-12-01 10:55 | PDINTPN ---
Time Clock Repairer Progress Note Assessment/Plan: Assessment: Status post myocardial infarction. This was associated probably to a distal circumflex arterial dissection. Could not be stented or ballooned. Returned to the ICU to complete the her infarct. Troponin peaked, came down, then bumped up again with pericardial effusion/tamponade. No arrhythmias. Ejection fraction overall was normal on catheterization, and on echo today estimated left ventricular ejection fraction is approximately 60%. Pericardial tamponade: With hypotension, bradycardia /2 a.m. Improved with pericardial drain, but then decompensated. Taken to the OR 11/28 afternoon for pericardial window, then had hypotension and immediately returned to the operating room for further evacuation of clot. Additionally, bilateral pleural effusions were drained. S/P PEA arrest following sternotomy/open pericardial drainage and bilateral pleural drainage 11/29 PM: Hgb fell 4 points, PEA likely due to hypovolemia from hemorrhage. Responded to CPR, fluids/HCO3, PRBCs. Has received a total of 4 PRBCs, 2 FFP, 1 cryo. Remains on DA. Atrial Fibrillation: Developed 11/30 AM. Now NSR on amio drip. Anemia: Hemoglobin 8.5 in the operating room. Receiving 5th unit of packed red blood cells since her arrest on 11/29 PM Respiratory Failure: On vent with good sats and CO2/pH, weaned down to 45 % oxygen, tolerating CPAP. Hypernatremia: Since arrest. Likely due to Na HCO3. Trending down Hypokalemia: Resolved Coagulopathy: Partially corrected with FFP, cryo Bilateral pleural effusions: Drained in the operating room 11/29. Additional left chest tube placed on 11/30 with good drainage. Chronic right shoulder pain, has a Tens unit. Prophylaxis: On enoxaparin and famotidine. History ADD: On Ritalin. Currently on hold secondary to potential cardio stimulation. History of hypertension. Her home lisinopril is on hold. Plan: Continue care in the intensive care unit. Continue hemodynamic monitoring, amio. Wean DA as tolerated. Continue pain control. Continue IV fluids. Patient past wean parameters. I extubated the patient and she is doing well on facemask oxygen Replace K+. Follow H/H, K+, Na 35 min CC time managing hypotension, respiratory failure 12/01/18 10:56 Subjective: Agitated, wants to be extubated. Objective: Vital Signs Temp Pulse Resp BP Pulse Ox 36.6 C 88 18 107/59 L 95 12/01/18 09:57 12/01/18 09:57 12/01/18 09:57 12/01/18 09:57 12/01/18 09:57 Microbiology 11/28/18 09:40 Gram Stain - Final Pericardial Fluid - Aspirate Laboratory Results 12/01/18 05:30 12/01/18 05:30 11/30/18 12/01/18 12/02/18 05:59 05:59 05:59 Intake Total 5763 1492 Output Total 2995 3170 305 Balance 5258 -3988 -305 PT 18.5 SEC (12.0-15.0) H 11/30/18 05:30 INR 1.62 (0.83-1.16) H 11/30/18 05:30 Chest x-ray: Improved left opacity. Endotracheal tube okay. Images reviewed by me. Laboratory Tests 12/01/18 02:03 POC ABG pH 7.51 H POC ABG pO2 69 POC ABG HCO3 27 H POC ABG Total CO2 28 H POC ABG Base Excess 4.0 H POC FiO2 50.0000 Physical Exam - Physical Exam General Appearance: alert, no apparent distress EENT: normal ENT inspection Neck: normal inspection Respiratory: lungs clear, normal breath sounds, respiratory distress Cardiac/Chest: regular rate, rhythm, No edema Abdomen: normal bowel sounds, non-tender, soft Skin: normal color, warm/dry Extremities: normal inspection Neuro/Psych: alert, No normal mood/affect (agitated) ICD10 Worksheet Patient Problems: Problems Problem Status Onset Bilateral pleural effusion Acute Pericardial effusion with cardiac tamponade Acute Post-infarction pericarditis Acute S/P pericardial window creation Acute ~11/29/18 STEMI (ST elevation myocardial infarction) Acute
--- NOTE | 2018-12-01 11:07 | HOSPPROG ---
Hospitalist Progress Note Assessment/Plan: #Post infarction pericardial tamponade/effusion: drain initially placed, but required pericardial window that was complicated by ongoing blees -s/p subxiphoid pericardotomy/sternotomy for clot evacuation #Left hemithorax: chest tube placed #Atrial fibrillation: converted to NSR with amiodarone #PEA arrest: s/p post-sternotomy, in setting of acidosis #ABLA: due to above. 1 unit transfused today #Acute hypoxemic resp failure: BL effusions drain, left CT in place. Extubated #STEMI: LCx occlusion with dissection, not amendable to stenting #JAQUAN: due to hypotension #Cardiogenic shock: volume seems to be issue; wean dopamine as tolerated #Hyperglycemia: off insulin gtt, SSI. A1c 5.8 #Metabolic encephalopathy: improved with Narcan. Avoid these meds #Chronic pain: no longer on opioids outpatient #Diet: cardiac #DVT ppx: SCDs Inpatient admission for tamponade, surgical intervention Subjective: BP very labile. Pressure dropped to 70s with standing Objective: Vital Signs Temp Pulse Resp BP Pulse Ox 36.6 C 89 18 107/59 L 96 12/01/18 09:57 12/01/18 10:52 12/01/18 09:57 12/01/18 09:57 12/01/18 10:52 Microbiology 11/28/18 09:40 Gram Stain - Final Pericardial Fluid - Aspirate Laboratory Results 12/01/18 05:30 12/01/18 05:30 11/30/18 12/01/18 12/02/18 05:59 05:59 05:59 Intake Total 5763 1492 Output Total 2995 3170 305 Balance 2768 -1678 -305 PT 18.5 SEC (12.0-15.0) H 11/30/18 05:30 INR 1.62 (0.83-1.16) H 11/30/18 05:30 - Time Spent With Patient Time Spent with Patient: greater than 35 minutes Time Spent with Patient: Greater than 35 minutes spent on this patients care, greater than 50% of time spent counseling, educating, and coordinating care regarding the above mentioned plan. - Physical Exam Constitutional: no apparent distress Eyes: PERRL Ears, Nose, Mouth, Throat: other (intubated) Cardiovascular: other (medistinal drains in placed) Respiratory: other (left chest tube) Genitourinary: rosenthal in urethra Musculoskeletal: other (hands in mitts) Psychiatric: encephalopathic, other (agitated,pulling at ETT) ICD10 Worksheet Patient Problems: Problems Problem Status Onset Bilateral pleural effusion Acute Pericardial effusion with cardiac tamponade Acute Post-infarction pericarditis Acute S/P pericardial window creation Acute ~11/29/18 STEMI (ST elevation myocardial infarction) Acute
[2018-12-01 11:08] VITALS: BP 105/53
[2018-12-01] MEDS ORDERED: ALBUMIN 5% 500 ML BOTTLE IV ONE (11:49)
[2018-12-01] MEDS ORDERED: EPINEPHrine 1 MG in NS 250 ML IV SCH (12:00)
[2018-12-01] MEDS ORDERED: EPINEPHrine 1 MG/10 ML SYR IVP ONE ×2 (12:30→15:07)
[2018-12-01] MEDS ORDERED: ALBUMIN 5% 500 ML IV ONE (12:30)
[2018-12-01] MEDS ORDERED: EPINEPHrine 1 MG/ML INJ IV ONE (12:30)
--- NOTE | 2018-12-01 14:29 | GPN ---
[f rep st] PROCEDURE NOTE DATE OF PROCEDURE: 12/01/2018 PROCEDURE: Flexible fiberoptic bronchoscopy. REASON FOR THE PROCEDURE: Respiratory arrest with pulmonary edema, confirm endotracheal tube placeme nt. PROCEDURE NOTE: Due to the emergent nature of the procedure, implied consent was used. While chest compressions were being done, I advanced the bronchoscope through the endotracheal tube, where I enco untered a moderate amount of fluid that appeared to be pulmonary edema, with very slight blood tinge. I was able to confirm the placement of the endotracheal tube, which was right at the saul. I suc tioned edema fluid from both mainstem bronchi and pulled the tube back approximately 1 cm. The patie nt was getting chest compressions throughout this time. Resuscitation efforts were terminated shortl y after the bronchoscopy. /[id number]/MODL
[2018-12-01] MEDS ORDERED: CALCIUM CHLORIDE 1 GM/10 ML INJ ONE (15:07)
--- NOTE | 2018-12-02 09:22 | GDS ---
[f rep st] DISCHARGE SUMMARY DISCHARGE DIAGNOSES: 1. Post infarction complicated by pericardial tamponade/effusion, left hemothorax. 2. Atrial fibrillation. 3. Pulseless electrical activity arrest. 4. Acute blood loss anemia. 5. Acute hypoxic hypoxemic respiratory failure. 6. ST-segment elevation myocardial infarction. 7. Acute kidney injury. 8. Cardiogenic shock. 9. Hyperglycemia metabolic encephalopathy, chronic pain. HISTORY OF PRESENT ILLNESS: A 73-year-old female with history of hypertension on therapy, presented to the ER with chest pain. The ECG in the ER shows large ST elevations inferior/inferior lateral edith ds. Patient was taken to cardiac cath, found to have a left circumflex occlusion that was complicate d with SCAD not amenable to stenting. HOSPITAL COURSE BY PROBLEM: 1. STEMI: Left circumflex is occluded with dissection so is not amenable to stenting. [facility]. 2. Post infarction pericardial tamponade/effusion: The drain was initially placed, however, had per sistent bleeding, thus was taken by Dr. Peralta for pericardial window. After that procedure had ongoi ng bleed, and was taken back for pericardiotomy/sternotomy for clot evacuation. 3. Left hemothorax: After these procedures, a chest tube was placed with improvement. Atrial fibri llation converted normal sinus on amiodarone. Cardiogenic shock, required blood products, dopamine. 4. PEA arrest: Status post sternotomy in the setting of hemorrhagic shock and severe acidosis. 5. Metabolic encephalopathy due to critical illness medications. 6. Recurrent PEA arrest: On the afternoon of 12/01/2018, the patient again lost pulses, was unable to regain appropriate rhythm. The patient was pronounced. /[id number]/MODL
--- NOTE | 2018-12-06 09:19 | POSTANESTH ---
Post Anesthetic Evaluation Cardiovascular Status: Other, See Comment Respiratory Status: Other, See Comment Level of Consciousness/Mental Status: Other, See Comment Complications Possibly Related to Anesthesia: None Noted (Pt , chart reveiwed no apparent comp geta)
== END 2018-12-01 12:01 | disposition expired | DRG 270 ==
LOC: EDBD 15:03 → F2N 15:03 → F2W 11-27 14:11 → F2N 11-28 02:07
PROVIDERS: ADMIT Internal Medicine Interventional Cardiology; ATTEND Internal Medicine Interventional Cardiology
PROC: 4A023N7 Measurement of Cardiac Sampling and Pressure, Left Heart, Percutaneous Approach (ICD-10-PCS; 2018-11-25)
PROC: B2151ZZ Fluoroscopy of Left Heart using Low Osmolar Contrast (ICD-10-PCS; 2018-11-25)
PROC: B2111ZZ Fluoroscopy of Multiple Coronary Arteries using Low Osmolar Contrast (ICD-10-PCS; 2018-11-25)
PROC: 02HV33Z Insertion of Infusion Device into Superior Vena Cava, Percutaneous Approach (ICD-10-PCS; 2018-11-27)
PROC: 0W9B00Z Drainage of Left Pleural Cavity with Drainage Device, Open Approach (ICD-10-PCS; 2018-11-28)
PROC: 0W9D30Z Drainage of Pericardial Cavity with Drainage Device, Percutaneous Approach (ICD-10-PCS; 2018-11-28)
PROC: 30233N1 Transfusion of Nonautologous Red Blood Cells into Peripheral Vein, Percutaneous Approach (ICD-10-PCS; 2018-11-29)
PROC: 30233L1 Transfusion of Nonautologous Fresh Plasma into Peripheral Vein, Percutaneous Approach (ICD-10-PCS; 2018-11-29)
PROC: 5A1945Z Respiratory Ventilation, 24-96 Consecutive Hours (ICD-10-PCS; principal; 2018-11-29 13:00)
PROC: 0WCD0ZZ Extirpation of Matter from Pericardial Cavity, Open Approach (ICD-10-PCS; principal; 2018-11-29 13:00)
PROC: 0WCD0ZZ Extirpation of Matter from Pericardial Cavity, Open Approach (ICD-10-PCS; 2018-11-29 13:00)
PROC: 0B978ZZ Drainage of Left Main Bronchus, Via Natural or Artificial Opening Endoscopic (ICD-10-PCS; 2018-12-01)
PROC: 0B938ZZ Drainage of Right Main Bronchus, Via Natural or Artificial Opening Endoscopic (ICD-10-PCS; 2018-12-01)
DX: I21.21 ST elevation (STEMI) myocardial infarction involving left circumflex coronary artery (principal); J96.01 Acute respiratory failure with hypoxia; G93.41 Metabolic encephalopathy; I31.3 Pericardial effusion (noninflammatory); J94.2 Hemothorax; D62 Acute posthemorrhagic anemia; N17.9 Acute kidney failure, unspecified; I46.9 Cardiac arrest, cause unspecified; R73.9 Hyperglycemia, unspecified; I48.0 Paroxysmal atrial fibrillation; G89.29 Other chronic pain; E66.01 Morbid (severe) obesity due to excess calories; I10 Essential (primary) hypertension; Z87.891 Personal history of nicotine dependence
CPT/HCPCS: 82435-PO; 82565-PO; 82947-PO; 83605-ER; 84132-PO; 84295-PO; 84484-ER; 84520-PO; 85014-ER; 96374; C1725; C1751; C1760; C1769; C1887; C9606; J0153; J0171; J0282; J0583; J0690; J1170; J1200; J1265; J1644; J1650; J1815; J1940; J2001; J2060; J2150; J2250; J2260; J2270; J2310; J2370; J2405; J2704; J2720; J2930; J3010; J3475; J3480; P9012; P9016; P9017; P9021; P9041; Q9957; Q9967